=== PATIENT | female | born 1965 | race Caucasian/White ===

== ENCOUNTER 2019-07-02 20:10 | Inpatient (IN) ==
[2019-07-02] MEDS ORDERED: SODIUM CHLORIDE 0.9% 1000ML 1,000 ML IV ONE (20:58)
[2019-07-02] MEDS ORDERED: LORazepam 1 MG/2 ML VIAL IV STA (20:58)
--- NOTE | 2019-07-02 21:20 | CT Scan Report ---
CT head/brain wo con CT DOSE: 655.73 mGy.cm HISTORY: Mental status change Pt c/o hallucinations TECHNIQUE: Multiaxial CT images of the head were performed without the use of intravenous contrast. A dose lowering technique was utilized adhering to the principles of ALARA. Comparison: None. Findings: The paranasal sinuses and mastoid air cells are clear. The calvarium and skull base are int act. The ventricles and sulci are within normal limits. There is no mass, hematoma, midline shift, or acute infarct. Impression: No acute intracranial abnormality. The above report was generated using voice recognition software. It may contain grammatical, syntax or spelling errors. Electronically signed by: Willam Marin M.D. 07/02/2019 9:19 PM
[2019-07-02 21:29] LABS: Basophils # (auto) 0.05 K/uL (0-0.2); Eosinophils # (auto) 0.02 K/uL (0-0.5); Eosinophils % (auto) 0.4 %; Hemoglobin 15.2 g/dL (12.0-16.0); Immature Granulocytes # (auto) 0.01 K/uL (0.00-0.02); Immature Granulocytes % (auto) 0.2 %; Lymphocytes # (auto) 0.75 K/uL (1.2-3.4); Lymphocytes % (auto) 14.7 %; Mean Corpuscular Hemoglobin 34.6 pg (25-34); Mean Corpuscular Hgb Conc 35.3 g/dL (32-36); Mean Corpuscular Volume 97.9 fL (80-100); Mean Platelet Volume 10.9 fL (7.4-10.4); Monocytes # (auto) 0.59 K/uL (0.11-0.59); Monocytes % (auto) 11.5 %; Neutrophils # (auto) 3.69 K/uL (1.4-6.5); Neutrophils % (auto) 72.2 %; Platelet Count 153 K/uL (130-400); RDW Standard Deviation 46.1 fL (36.4-46.3); Red Blood Count 4.39 M/uL (4.2-5.4); White Blood Count 5.11 K/uL (4.8-10.8)
[2019-07-02 21:32] LABS: Appearance Urine Slightly Cloudy (Clear); Bilirubin Urine 2+ (Negative); Blood Urine 3+ (Negative); Color Urine Yellow; Glucose Urine UA Negative (Negative); Ketones Urine 2+ (Negative); Leukocyte Esterase Urine Negative (Negative); Nitrite Urine Negative (Negative); Protein Urine Trace (Negative); Specific Gravity Urine >= 1.030 (1.000-1.030); Urobilinogen Urine Negative (Negative)
[2019-07-02 21:34] LABS: Ictotest Urine Positive (Negative)
[2019-07-02 21:42] LABS: Mucus Urine Present (None Prsent)
[2019-07-02 21:43] LABS: Epithelial Cell Urine >30 /lpf (0-5)
[2019-07-02 21:45] LABS: Bacteria Urine 2+ (Negative)
[2019-07-02] MEDS ORDERED: cefTRIAXone SODIUM 2,000 MG/70 ML BAG IV STA (21:49)
[2019-07-02 21:53] LABS: Amphetamines+Metham, Urine Neg (Neg); Barbiturates, Urine Neg (Neg); Benzodiazepine, Urine Neg (Neg); Cocaine, Urine Neg (Neg); MDMA (Ecstacy), Urine Neg (Neg); Methadone, Urine Neg (Neg); Opiate, Urine Neg (Neg); Phencyclidine, Urine Neg (Neg)
[2019-07-02 21:54] LABS: Albumin Level 3.9 gm/dl (3.4-5.0); BUN Creatinine Ratio 22.5 (10-20); Calcium 8.8 mg/dl (8.5-10.1); Creatinine Clr Calc Pharmacy 81.9 ml/min; Est GFR (African American) 88.8; Est GFR (Non-African American) 76.6; Potassium 3.5 mmol/L (3.5-5.1)
[2019-07-02 22:04] LABS: Bilirubin,Total 3.9 mg/dl (0.2-1); Globulin 4.1 gm/dl (2.5-4.0); Thyroid Stimulating Hormone 1.77 uIu/ml (0.300-4.500)
[2019-07-02] MEDS ORDERED: MULTI-VITAMIN INFUSION 10 ML, THIAMINE HCL 100 MG, FOLIC ACID 1 MG in SODIUM CHLORIDE 0... IV ONE (22:09)
[2019-07-02] MEDS ORDERED: cloNIDine HCL 0.3 MG/24 HR TRANSDERM SYS TD STA (22:09)
[2019-07-02 22:12] LABS: Acetaminophen < 2 ug/ml (10-30); Salicylate < 1.7 mg/dl (2.8-20)
[2019-07-02] MEDS ORDERED: DEXTROSE 5% IV ONE (22:16)
[2019-07-02] MEDS ORDERED: ACETYLCYSTEINE IV ONE (22:16)
--- NOTE | 2019-07-02 23:00 | Ultrasound Report ---
US abdomen limited HISTORY: Pain. Nausea. Pt c/o RUQ abd pain. COMPARISON: None. FINDINGS: Pancreas: The pancreas demonstrates a normal echotexture. Liver: Unremarkable. Gallbladder: Several small gallbladder polyps. No shadowing gallstones. No pericholecystic edema CBD: 4 mm Right kidney: No hydronephrosis. IMPRESSION: 1. Several small gallbladder polyps. 2. Normal caliber bile ducts. 3. Otherwise normal study. The above report was generated using voice recognition software. It may contain grammatical, syntax or spelling errors. Electronically signed by: Willam Marin M.D. 07/02/2019 10:58 PM
[2019-07-02] MEDS ORDERED: IOVERSOL 100ml IV PRN (23:06)
[2019-07-02 23:40] LABS: INR 1.2 (0.9-1.1); Partial Thromboplastin Time 26.8 Seconds (21.0-31.0); Prothrombin Time 12.1 Seconds (9.0-12.0)
[2019-07-02] MEDS: METOPROLOL TARTRATE 1 MG/ML VIAL IV ONE (23:49)
[2019-07-03] MEDS ORDERED: CHECK CLONIDINE PATCH PLACEMENT SCH
[2019-07-03 00:10] LABS: Hepatitis B Surface Antigen Neg (Neg)
[2019-07-03] MEDS ORDERED: METOPROLOL TARTRATE 1 MG/ML VIAL IV STA (00:38)
[2019-07-03 00:39] LABS: Lipase 427 U/L (73-393); Troponin I < 0.015 ng/ml (0-0.045)
[2019-07-03 00:39] LABS: Hepatitis C IgG 13Yrs+Old_Rflx Neg (Neg)
[2019-07-03] MEDS ORDERED: SODIUM CHLORIDE 0.9% 500 ML IV SCH (00:45)
[2019-07-03] MEDS: METOPROLOL TARTRATE 1 MG/ML VIAL IV ONE (00:56)
--- NOTE | 2019-07-03 01:15 | Emergency Department Note ---
Entered by Jerman Izquierdo acting as a scribe for Jaya Espinosa MD History of Present Illness General Chief complaint: Illness Stated complaint: SICK EARLIER ON IN THE WEEK, PRESSURE IN HEAD, Time Seen by Provider: 07/02/19 20:38 Source: patient History of Present Illness Onset (ago): day(s) (few) Location: head Pain Consistency: + intermittent Maximum Pain Intensity: 3 Quality: + other (auditory and visual hallucinations) Associated symptoms: + denies other symptoms (diarrhea, abdominal pain, current nausea), + nausea/vomiting (resolved) and + other (increased stress, shaking, red eyes, pressure in head) The patient is a 54 y/o female who presents to the ED w/ CC of intermittent auditory and visual hallucinations beginning a few days ago. The patient states she was vomiting Saturday, Saturday, and Saturday. She reports her vomiting resolved and now she cannot stop shaking. The patient notes she has not been able to eat and also has not been able to sleep. She states she also has pressure in her head and tightness in her chest. The patient reports she has been through a lot of stress recently with work and the suicide of a close family member. She notes this may be caused by her anxiety but she is not sure because she has not had hallucinations before. The patient states she took a Benadryl to try to calm down, and she thinks it is finally working. She reports she also woke up the other day with severely red eyes and pressure behind them. The patient notes she does not think she is . She denies diarrhea, abdominal pain, eating a questionable food source, current nausea, and taking medication daily. Home Medications Home Medications Medication Instructions Recorded Confirmed Type folic acid 1 mg PO QAM 30 Days #30 tab 07/06/19 Rx metoprolol tartrate 12.5 mg PO BID 30 Days #30 tab 07/06/19 Rx pkbqllldfktm-[id number] acid 1 tab PO QAM 30 Days #30 tab 07/06/19 Rx [Certavite-Antioxidant] risperidone 0.5 mg PO TID PRN 3 Days #10 tab 07/06/19 Rx thiamine HCl (vitamin B1) [Vitamin 100 mg PO QAM 30 Days #30 tab 07/06/19 Rx B-1] Allergies Allergy/AdvReac Type Severity Reaction Status Date / Time Penicillins Allergy Mild Unknown Verified 07/02/19 20:51 Past Med/Surg History Medical History No pertinent past medical history Surgical History No pertinent past surgical history Family History Other No pertinent family history Social History Preferred Language: Finnish Communication Ability: Effective Sap Portal Developer Required: No Beliefs That Will Affect Care: Judaism marital status: Current Living Situation: Spouse Other Information That Helps Us Care for You: No Feels Safe at Home: Yes Safety Concerns: Feels Safe At This Time Smoking Status: Former smoker Hx Alcohol Use: Yes Alcohol type: wine Review of Systems See HPI for pertinent positives & negatives. and A total of 10 systems reviewed and were otherwise negative Physical Exam Vital Signs Vital Signs - 24 hr 07/02/19 20:19 07/02/19 23:27 07/02/19 23:30 Temperature 36.5 C Temperature Source Oral Sepsis Recent Fever Within 48 Hours No Sepsis New/Unexplained Change in Mental Status No Sepsis Action Taken by Nursing No Action Required Pulse Rate 114 H 97 H 97 H Pulse Rate from SpO2 Sensor 97 H 101 H Respiratory Rate 20 22 22 Respiratory Effort / Characteristics Non-Labored Spontaneous Respiratory Depth Normal Respiratory Pattern Regular Blood Pressure 180/100 H 145/77 H 136/77 Blood Pressure Mean 126 99 96 Blood Pressure Position Sitting Pulse Oximetry 91 93 96 Oxygen Delivery Method Room Air 07/02/19 23:45 07/02/19 23:46 Temperature Temperature Source Sepsis Recent Fever Within 48 Hours Sepsis New/Unexplained Change in Mental Status Sepsis Action Taken by Nursing Pulse Rate 189 H 188 H Pulse Rate from SpO2 Sensor 141 H 113 H Respiratory Rate 20 17 Respiratory Effort / Characteristics Respiratory Depth Respiratory Pattern Blood Pressure 158/76 H Blood Pressure Mean 103 Blood Pressure Position Pulse Oximetry 99 99 Oxygen Delivery Method GENERAL: Awake, alert, well-appearing, in no acute distress HENT: Normocephalic, atraumatic. Oropharynx unremarkable. EYES: Normal conjunctiva. Sclera non-icteric. NECK: Supple. No nuchal rigidity. FROM. No JVD. RESPIRATORY: Clear to auscultation. CARDIAC: Regular rate, normal rhythm. Extremities warm and well perfused. Pulses equal. ABDOMEN: Soft, non-distended. No tenderness to palpation. No rebound or guarding. No masses. RECTAL: Deferred. MUSCULOSKELETAL: Chest examination reveals no tenderness. The back is symmetrical on inspection without obvious abnormality. There is no CVA tenderness to palpation. No joint edema. LOWER EXTREMITIES: Calves are equal size bilaterally and non-tender. No edema. No discoloration. NEURO: Normal sensorium. No sensory or motor deficits noted. SKIN: No rash or jaundice noted. Course 2051: Past medical records reviewed. The patient was evaluated in room B10. A complete history and physical exam was performed. 2213: Upon reevaluation, the patient is resting comfortably. I discussed laboratory and radiographic results with her. She verbalized agreement of the treatment plan. The patient will be evaluated for further management and care. 2218: [facility] the [facility] will [facility] the patient for further management and care. Administered Medications Discontinued Medications Clonidine HCl ([id number]-Yzf-7 0.3mg/24hr) 1 patch TD NOW STA Stop: 07/02/19 22:10 Last Admin: 07/02/19 22:12 Dose: Not Given Documented by: [id number] Diltiazem HCl (Cardizem) 10 mg IV NOW STA Stop: 07/03/19 01:48 Last Admin: 07/03/19 02:30 Dose: 10 mg Documented by: [id number] Cosigned by: [id number] Folic Acid (Folvite) 1 mg PO QAM DRAKE Stop: 08/03/19 08:59 Last Admin: 07/06/19 08:16 Dose: 1 mg Documented by: [id number] Admin: 07/05/19 09:16 Dose: 1 mg Documented by: [id number] Admin: 07/04/19 10:21 Dose: 1 mg Documented by: [id number] Gabapentin (Neurontin) 100 mg PO Q6H DRAKE Stop: 07/04/19 23:01 Last Admin: 07/05/19 00:20 Dose: 100 mg Documented by: [id number] Admin: 07/04/19 16:29 Dose: 100 mg Documented by: [id number] Gabapentin (Neurontin) 400 mg PO Q24H DRAKE Stop: 07/06/19 11:01 Last Admin: 07/06/19 10:57 Dose: 400 mg Documented by: [id number] Gabapentin (Neurontin) 600 mg PO 1100 ONE Stop: 07/04/19 11:01 Last Admin: 07/04/19 11:51 Dose: 600 mg Documented by: [id number] Gabapentin (Neurontin) 600 mg PO Q24H DRAKE Stop: 07/05/19 11:01 Last Admin: 07/05/19 12:02 Dose: 600 mg Documented by: [id number] Heparin Sodium/Dextrose () 1 ea IV Q15M DRAKE; Protocol Stop: 08/02/19 02:01 Last Admin: 07/03/19 02:46 Dose: Not Given Documented by: [id number] Admin: 07/03/19 02:45 Dose: Not Given Documented by: [id number] Admin: 07/03/19 02:45 Dose: Not Given Documented by: [id number] Lorazepam (Ativan) 1 mg in 2 mls @ 2 mls/min IV NOW STA Stop: 07/02/19 20:59 Last Admin: 07/02/19 21:28 Dose: 2 mls/min Documented by: [id number] Sodium Chloride (Nss 1000ml) 1,000 mls @ 999 mls/hr IV .Q1H1M ONE Stop: 07/02/19 21:58 Last Infusion: 07/02/19 22:29 Dose: 0 mls/hr Documented by: [id number] Admin: 07/02/19 21:27 Dose: 999 mls/hr Documented by: [id number] Ceftriaxone Sodium (Rocephin) 2,000 mg in 70 mls @ 140 mls/hr IV NOW STA Stop: 07/02/19 22:18 Last Infusion: 07/02/19 23:29 Dose: 0 mls/hr Documented by: [id number] Admin: 07/02/19 22:12 Dose: 140 mls/hr Documented by: [id number] Multivitamins 10 ml/ Thiamine HCl 100 mg/ Folic Acid 1 mg/Sodium Chloride 1,011.2 mls @ 1,011.2 mls/hr IV .Q1H ONE Stop: 07/02/19 23:08 Last Infusion: 07/03/19 00:59 Dose: 0 mls/hr Documented by: [id number] Admin: 07/02/19 23:38 Dose: 1,011.2 mls/hr Documented by: [id number] Acetylcysteine 12,150 mg/ (Dextrose) 260.75 mls @ 200 mls/hr IV ONCE ONE Stop: 07/02/19 23:34 Last Infusion: 07/03/19 02:55 Dose: 0 mls/hr Documented by: [id number] Admin: 07/03/19 00:24 Dose: 200 mls/hr Documented by: [id number] Sodium Chloride (Nss) 500 mls @ 500 mls/hr IV .Q1H DRAKE Stop: 07/03/19 01:44 Last Infusion: 07/03/19 00:58 Dose: 0 mls/hr Documented by: [id number] Admin: 07/02/19 23:55 Dose: 500 mls/hr Documented by: [id number] Diltiazem HCl 125 mg/ Dextrose 125 mls @ 5 mls/hr IV .Q24H DRAKE; Protocol Stop: 08/02/19 01:46 Last Titration: 07/03/19 10:03 Dose: 0 mg/hr, 0 mls/hr Documented by: [id number] Titration: 07/03/19 07:16 Dose: 5 mg/hr, 5 mls/hr Documented by: [id number] Cosigned by: [id number] Titration: 07/03/19 04:32 Dose: 5 mg/hr, 5 mls/hr Documented by: [id number] Titration: 07/03/19 03:42 Dose: 15 mg/hr, 15 mls/hr Documented by: [id number] Titration: 07/03/19 03:12 Dose: 10 mg/hr, 10 mls/hr Documented by: [id number] Admin: 07/03/19 02:54 Dose: 5 mg/hr, 5 mls/hr Documented by: [id number] Cosigned by: [id number] Sodium Chloride (Nss 1000ml) 1,000 mls @ 125 mls/hr IV .Q8H DRAKE Stop: 08/02/19 02:01 Last Infusion: 07/04/19 12:00 Dose: 0 mls/hr Documented by: [id number] Infusion: 07/04/19 00:00 Dose: 0 mls/hr Documented by: [id number] Admin: 07/03/19 18:12 Dose: 125 mls/hr Documented by: [id number] Infusion: 07/03/19 18:07 Dose: 125 mls/hr Documented by: [id number] Admin: 07/03/19 10:07 Dose: 125 mls/hr Documented by: [id number] Infusion: 07/03/19 10:07 Dose: 125 mls/hr Documented by: [id number] Admin: 07/03/19 02:38 Dose: 125 mls/hr Documented by: [id number] Heparin Sodium/Dextrose (Heparin Sodium/Dextrose) 25,000 units in 500 mls @ 0 mls/hr IV .Q0M DRAKE; Protocol Stop: 08/02/19 02:01 Last Titration: 07/04/19 12:00 Dose: 0 units/hr, 0 mls/hr Documented by: [id number] Cosigned by: [id number] Titration: 07/04/19 00:00 Dose: 0 units/hr, 0 mls/hr Documented by: [id number] Cosigned by: [id number] Titration: 07/03/19 19:16 Dose: 900 units/hr, 18 mls/hr Documented by: [id number] Cosigned by: [id number] Titration: 07/03/19 17:49 Dose: 900 units/hr, 18 mls/hr Documented by: [id number] Cosigned by: [id number] Titration: 07/03/19 16:49 Dose: 0 units/hr, 0 mls/hr Documented by: [id number] Cosigned by: [id number] Titration: 07/03/19 10:06 Dose: 1,100 units/hr, 22 mls/hr Documented by: [id number] Cosigned by: [id number] Titration: 07/03/19 07:15 Dose: 1,250 units/hr, 25 mls/hr Documented by: [id number] Cosigned by: [id number] Admin: 07/03/19 02:41 Dose: 1,250 units/hr, 25 mls/hr Documented by: [id number] Cosigned by: [id number] Potassium Chloride (K Elian / Wtr) 10 meq in 100 mls @ 100 mls/hr IV Q1H DRAKE Stop: 07/03/19 08:59 Last Infusion: 07/03/19 12:26 Dose: 100 mls/hr Documented by: [id number] Admin: 07/03/19 10:21 Dose: 100 mls/hr Documented by: [id number] Infusion: 07/03/19 10:21 Dose: 100 mls/hr Documented by: [id number] Admin: 07/03/19 09:24 Dose: 100 mls/hr Documented by: [id number] Lorazepam (Ativan) 0.5 mg in 1 mls @ 1 mls/min IV NOW STA Stop: 07/03/19 09:22 Last Admin: 07/03/19 10:21 Dose: 1 mls/min Documented by: [id number] Ceftriaxone Sodium 2,000 mg/ (Dextrose) 70 mls @ 100 mls/hr IV Q24H DRAKE; Protocol Stop: 07/07/19 20:59 Last Infusion: 07/04/19 22:51 Dose: 0 mls/hr Documented by: [id number] Admin: 07/04/19 22:10 Dose: 100 mls/hr Documented by: [id number] Infusion: 07/03/19 21:36 Dose: 0 mls/hr Documented by: [id number] Admin: 07/03/19 20:54 Dose: 100 mls/hr Documented by: [id number] Lorazepam (Ativan) 1.5 mg in 3 mls @ 3 mls/min IV NOW STA Stop: 07/03/19 23:18 Last Admin: 07/04/19 07:28 Dose: Not Given Documented by: [id number] Lorazepam (Ativan) 2 mg in 4 mls @ 4 mls/min IV Q2H PRN PRN Reason: Anxiety/Agitation Stop: 08/03/19 00:02 Last Admin: 07/04/19 00:24 Dose: 4 mls/min Documented by: [id number] Potassium Chloride (K Elian / Wtr) 10 meq in 100 mls @ 100 mls/hr IV Q1H DRAKE Stop: 07/04/19 11:29 Last Infusion: 07/04/19 12:55 Dose: 0 mls/hr Documented by: [id number] Admin: 07/04/19 11:51 Dose: 100 mls/hr Documented by: [id number] Infusion: 07/04/19 11:22 Dose: 100 mls/hr Documented by: [id number] Infusion: 07/04/19 10:22 Dose: 100 mls/hr Documented by: [id number] Infusion: 07/04/19 10:21 Dose: 0 mls/hr Documented by: [id number] Admin: 07/04/19 10:21 Dose: 100 mls/hr Documented by: [id number] Potassium Chloride/Sodium Chloride (Normal Saline W/20 Meq Kcl) 20 meq in 1,000 mls @ 75 mls/hr IV .[id number] DRAKE Stop: 08/03/19 08:44 Last Admin: 07/05/19 14:28 Dose: Not Given Documented by: [id number] Infusion: 07/05/19 14:28 Dose: 0 mls/hr Documented by: [id number] Admin: 07/05/19 01:53 Dose: 75 mls/hr Documented by: [id number] Infusion: 07/05/19 01:53 Dose: 75 mls/hr Documented by: [id number] Infusion: 07/04/19 12:54 Dose: 75 mls/hr Documented by: [id number] Infusion: 07/04/19 10:22 Dose: 0 mls/hr Documented by: [id number] Admin: 07/04/19 10:21 Dose: 75 mls/hr Documented by: [id number] Lorazepam (Ativan) 1 mg in 2 mls @ 4 mls/min IV Q2H PRN PRN Reason: Anxiety/Agitation Stop: 08/03/19 10:51 Last Admin: 07/04/19 16:29 Dose: 4 mls/min Documented by: [id number] Admin: 07/04/19 15:00 Dose: 4 mls/min Documented by: [id number] Ioversol (Optiray 320 100ml) 93 ml IV ONCE PRN PRN Reason: Interaction Checking Stop: 07/06/19 23:05 Last Admin: 07/02/19 23:06 Dose: 93 ml Documented by: [id number] Lorazepam (Ativan) 1 mg PO ONE PRN; Protocol PRN Reason: EtoH Withdrawal AWSS 6-10 Last Admin: 07/04/19 10:19 Dose: 1 mg Documented by: [id number] Lorazepam (Ativan) Confirm Administered Dose 2 mg .ROUTE .STK-MED ONE Stop: 07/04/19 17:59 Last Admin: 07/04/19 18:14 Dose: 2 mg Documented by: [id number] Metoprolol Tartrate (Lopressor) Confirm Administered Dose 5 mg IV .STK-MED ONE Stop: 07/02/19 23:47 Last Admin: 07/03/19 00:56 Dose: Not Given Documented by: [id number] Metoprolol Tartrate (Lopressor) 5 mg IV NOW STA Stop: 07/03/19 00:39 Last Admin: 07/02/19 23:49 Dose: 5 mg Documented by: [id number] Metoprolol Tartrate (Lopressor) 12.5 mg PO BID [facility] Stop: 08/02/19 09:59 Last Admin: 07/06/19 08:16 Dose: 12.5 mg Documented by: [id number] Admin: 07/05/19 20:05 Dose: 12.5 mg Documented by: [id number] Admin: 07/05/19 09:14 Dose: 12.5 mg Documented by: [id number] Admin: 07/05/19 00:20 Dose: 12.5 mg Documented by: [id number] Admin: 07/04/19 10:20 Dose: 12.5 mg Documented by: [id number] Admin: 07/03/19 20:53 Dose: 12.5 mg Documented by: [id number] Admin: 07/03/19 10:22 Dose: 12.5 mg Documented by: [id number] Miscellaneous (Check Clonidine Patch) 1 ea N/A QS [facility] Stop: 08/02/19 00:00 Last Admin: 07/03/19 02:19 Dose: Not Given Documented by: [id number] Multivitamins/Minerals (Multivitamin W/ Minerals Tab) [facility] Stop: 08/02/19 08:59 Last Admin: 07/06/19 08:15 Dose: 1 tab Documented by: [id number] Admin: 07/05/19 09:15 Dose: 1 tab Documented by: [id number] Admin: 07/04/19 10:20 Dose: 1 tab Documented by: [id number] Admin: 07/03/19 09:30 Dose: 1 tab Documented by: [id number] Ondansetron HCl (Zofran) 4 mg IV Q6H PRN PRN Reason: Nausea Stop: 08/02/19 02:01 Last Admin: 07/03/19 02:50 Dose: 4 mg Documented by: [id number] Pantoprazole Sodium (Protonix) 40 mg PO QAM [facility] Stop: 07/06/19 09:01 Last Admin: 07/06/19 08:15 Dose: 40 mg Documented by: [id number] Admin: 07/05/19 09:07 Dose: Not Given Documented by: [id number] Admin: 07/04/19 10:21 Dose: 40 mg Documented by: [id number] Admin: 07/03/19 12:36 Dose: 40 mg Documented by: [id number] Potassium Chloride (Klor-Con M20) 60 meq PO NOW STA Stop: 07/03/19 06:49 Last Admin: 07/03/19 09:23 Dose: 60 meq Documented by: [id number] Risperidone (Risperdal M) 0.5 mg PO TID PRN PRN Reason: Agitation Stop: 08/03/19 18:11 Last Admin: 07/05/19 20:05 Dose: 0.5 mg Documented by: [id number] Admin: 07/05/19 09:14 Dose: 0.5 mg Documented by: [id number] Thiamine HCl (Vitamin B-1) 100 mg PO QAM [facility] Stop: 08/02/19 08:59 Last Admin: 07/06/19 08:16 Dose: 100 mg Documented by: [id number] Admin: 07/05/19 09:16 Dose: 100 mg Documented by: [id number] Admin: 07/04/19 10:21 Dose: 100 mg Documented by: [id number] Admin: 07/03/19 09:30 Dose: 100 mg Documented by: [id number] Medical Decision Making Differential Diagnosis Differential diagnoses includes but is not limited to gastritis, peptic ulcer disease, GERD, gallbladder disease, pancreatitis, small bowel obstruction, acute coronary syndrome, pericarditis, ischemic bowel, irritable bowel disease, irritable bowel syndrome, appendicitis, diverticulitis, malignancy, hernia, urinary tract infection, torsion, /ectopic , perforation, trauma, infectious. Medical Records Attestation: I reviewed the patient's medical records. Home Medications Current Medication List: was personally reviewed by me Laboratory Data Attestation: I reviewed the patient's lab results. Result diagrams: 07/04/19 06:56 07/06/19 06:24 Lab Results 07/02/19 07/02/19 07/02/19 Range/Units 21:08 21:08 21:08 WBC 5.11 (4.8-10.8) K/uL RBC 4.39 (4.2-5.4) M/uL Hgb 15.2 (12.0-16.0) g/dL Hct 43.0 (37-47) % MCV 97.9 (80-100) fL MCH 34.6 H (25-34) pg MCHC 35.3 (32-36) g/dL RDW Std Deviation 46.1 (36.4-46.3) fL RDW Coeff of Serg 13.0 (11.5-14.5) % Plt Count 153 (130-400) K/uL MPV 10.9 H (7.4-10.4) fL Immature Gran % (Auto) 0.2 % Neut % (Auto) 72.2 % Lymph % (Auto) 14.7 % [place] % (Auto) 11.5 % Eos % (Auto) 0.4 % Baso % (Auto) 1.0 % Immature Gran # (Auto) 0.01 (0.00-0.02) K/uL Neut # (Auto) 3.69 (1.4-6.5) K/uL Lymph # (Auto) 0.75 L (1.2-3.4) K/uL [place] # (Auto) 0.59 (0.11-0.59) K/uL Eos # (Auto) 0.02 (0-0.5) K/uL Baso # (Auto) 0.05 (0-0.2) K/uL ESR (0-21) mm/hr PT (9.0-12.0) Seconds INR (0.9-1.1) APTT (21.0-31.0) Seconds PTT Ratio Sodium 134 L (136-145) mmol/L Potassium 3.5 (3.5-5.1) mmol/L Chloride 99 (98-107) mmol/L Carbon Dioxide 26 (21-32) mmol/L Anion Gap 10.0 (3-11) BUN 19 H (7-18) mg/dl Creatinine 0.86 (0.6-1.2) mg/dl Est Cr Clr Drug Dosing 81.9 ml/min Est GFR ( Amer) 88.8 Est GFR (Non-Af Amer) 76.6 BUN/Creatinine Ratio 22.5 H (10-20) Glucose 108 H (70-99) mg/dl Calcium 8.8 (8.5-10.1) mg/dl Total Bilirubin 3.9 H (0.2-1) mg/dl AST 829 H (15-37) U/L ALT 799 H (12-78) U/L Alkaline Phosphatase 181 H (45-117) U/L Total Protein 8.0 (6.4-8.2) gm/dl Albumin 3.9 (3.4-5.0) gm/dl Globulin 4.1 H (2.5-4.0) gm/dl Albumin/Globulin Ratio 1.0 (0.9-2) Lipase Cancelled TSH 1.770 (0.300-4.500) uIu/ml Urine Color Urine Appearance (Clear) Urine pH (4.5-7.5) Ur Specific [place] (1.000-1.030) Urine Protein (Negative) Urine Glucose (UA) (Negative) Urine Ketones (Negative) Urine Blood (Negative) Urine Nitrite (Negative) Urine Bilirubin (Negative) Urine Urobilinogen (Negative) Ur Leukocyte Esterase (Negative) Urine RBC (0-4) /hpf Urine WBC (0-5) /hpf Ur Epithelial Cells (0-5) /lpf Urine Bacteria (Negative) Urine Mucus (None Prsent) Salicylates < 1.7 L (2.8-20) mg/dl Urine Opiates Screen (Neg) Ur Methadone, Qual (Neg) Acetaminophen < 2 L (10-30) ug/ml Urine Barbiturates (Neg) Ur Phencyclidine (PCP) (Neg) U Amphetamin/Meth Scrn (Neg) MDMA (Ecstasy) Screen (Neg) U Benzodiazepines Scrn (Neg) Ur Cocaine Metabolite (Neg) U Marijuana (THC) Screen (Neg) Ethyl Alcohol mg/dL (0-3) mg/dl Hep Bs Antigen (Neg) Hepatitis C Antibody (Neg) Monoscreen (Negative) 07/02/19 07/02/19 07/02/19 Range/Units 21:08 21:08 21:08 WBC (4.8-10.8) K/uL RBC (4.2-5.4) M/uL Hgb (12.0-16.0) g/dL Hct (37-47) % MCV (80-100) fL MCH (25-34) pg MCHC (32-36) g/dL RDW Std Deviation (36.4-46.3) fL RDW Coeff of Serg (11.5-14.5) % Plt Count (130-400) K/uL MPV (7.4-10.4) fL Immature Gran % (Auto) % Neut % (Auto) % Lymph % (Auto) % [place] % (Auto) % Eos % (Auto) % Baso % (Auto) % Immature Gran # (Auto) (0.00-0.02) K/uL Neut # (Auto) (1.4-6.5) K/uL Lymph # (Auto) (1.2-3.4) K/uL [place] # (Auto) (0.11-0.59) K/uL Eos # (Auto) (0-0.5) K/uL Baso # (Auto) (0-0.2) K/uL ESR (0-21) mm/hr PT (9.0-12.0) Seconds INR (0.9-1.1) APTT (21.0-31.0) Seconds PTT Ratio Sodium (136-145) mmol/L Potassium (3.5-5.1) mmol/L Chloride (98-107) mmol/L Carbon Dioxide (21-32) mmol/L Anion Gap (3-11) BUN (7-18) mg/dl Creatinine (0.6-1.2) mg/dl Est Cr Clr Drug Dosing ml/min Est GFR ( Amer) Est GFR (Non-Af Amer) BUN/Creatinine Ratio (10-20) Glucose (70-99) mg/dl Calcium (8.5-10.1) mg/dl Total Bilirubin (0.2-1) mg/dl AST (15-37) U/L ALT (12-78) U/L Alkaline Phosphatase (45-117) U/L Total Protein (6.4-8.2) gm/dl Albumin (3.4-5.0) gm/dl Globulin (2.5-4.0) gm/dl Albumin/Globulin Ratio (0.9-2) Lipase TSH (0.300-4.500) uIu/ml Urine Color Urine Appearance (Clear) Urine pH (4.5-7.5) Ur Specific [place] (1.000-1.030) Urine Protein (Negative) Urine Glucose (UA) (Negative) Urine Ketones (Negative) Urine Blood (Negative) Urine Nitrite (Negative) Urine Bilirubin (Negative) Urine Urobilinogen (Negative) Ur Leukocyte Esterase (Negative) Urine RBC (0-4) /hpf Urine WBC (0-5) /hpf Ur Epithelial Cells (0-5) /lpf Urine Bacteria (Negative) Urine Mucus (None Prsent) Salicylates (2.8-20) mg/dl Urine Opiates Screen (Neg) Ur Methadone, Qual (Neg) Acetaminophen (10-30) ug/ml Urine Barbiturates (Neg) Ur Phencyclidine (PCP) (Neg) U Amphetamin/Meth Scrn (Neg) MDMA (Ecstasy) Screen (Neg) U Benzodiazepines Scrn (Neg) Ur Cocaine Metabolite (Neg) U Marijuana (THC) Screen (Neg) Ethyl Alcohol mg/dL < 3.0 (0-3) mg/dl Hep Bs Antigen Neg (Neg) Hepatitis C Antibody Neg (Neg) Monoscreen Negative (Negative) 07/02/19 07/02/19 07/02/19 Range/Units 21:08 21:15 21:15 WBC (4.8-10.8) K/uL RBC (4.2-5.4) M/uL Hgb (12.0-16.0) g/dL Hct (37-47) % MCV (80-100) fL MCH (25-34) pg MCHC (32-36) g/dL RDW Std Deviation (36.4-46.3) fL RDW Coeff of Serg (11.5-14.5) % Plt Count (130-400) K/uL MPV (7.4-10.4) fL Immature Gran % (Auto) % Neut % (Auto) % Lymph % (Auto) % [place] % (Auto) % Eos % (Auto) % Baso % (Auto) % Immature Gran # (Auto) (0.00-0.02) K/uL Neut # (Auto) (1.4-6.5) K/uL Lymph # (Auto) (1.2-3.4) K/uL [place] # (Auto) (0.11-0.59) K/uL Eos # (Auto) (0-0.5) K/uL Baso # (Auto) (0-0.2) K/uL ESR 23 H (0-21) mm/hr PT (9.0-12.0) Seconds INR (0.9-1.1) APTT (21.0-31.0) Seconds PTT Ratio Sodium (136-145) mmol/L Potassium (3.5-5.1) mmol/L Chloride (98-107) mmol/L Carbon Dioxide (21-32) mmol/L Anion Gap (3-11) BUN (7-18) mg/dl Creatinine (0.6-1.2) mg/dl Est Cr Clr Drug Dosing ml/min Est GFR ( Amer) Est GFR (Non-Af Amer) BUN/Creatinine Ratio (10-20) Glucose (70-99) mg/dl Calcium (8.5-10.1) mg/dl Total Bilirubin (0.2-1) mg/dl AST (15-37) U/L ALT (12-78) U/L Alkaline Phosphatase (45-117) U/L Total Protein (6.4-8.2) gm/dl Albumin (3.4-5.0) gm/dl Globulin (2.5-4.0) gm/dl Albumin/Globulin Ratio (0.9-2) Lipase TSH (0.300-4.500) uIu/ml Urine Color Yellow Urine Appearance Slightly Cloudy (Clear) Urine pH 5.0 (4.5-7.5) Ur Specific [place] >= 1.030 (1.000-1.030) Urine Protein Trace H (Negative) Urine Glucose (UA) Negative (Negative) Urine Ketones 2+ H (Negative) Urine Blood 3+ H (Negative) Urine Nitrite Negative (Negative) Urine Bilirubin 2+ H (Negative) Urine Urobilinogen Negative (Negative) Ur Leukocyte Esterase Negative (Negative) Urine RBC 5-10 H (0-4) /hpf Urine WBC 10-30 H (0-5) /hpf Ur Epithelial Cells >30 H (0-5) /lpf Urine Bacteria 2+ H (Negative) Urine Mucus Present A (None Prsent) Salicylates (2.8-20) mg/dl Urine Opiates Screen Neg (Neg) Ur Methadone, Qual Neg (Neg) Acetaminophen (10-30) ug/ml Urine Barbiturates Neg (Neg) Ur Phencyclidine (PCP) Neg (Neg) U Amphetamin/Meth Scrn Neg (Neg) MDMA (Ecstasy) Screen Neg (Neg) U Benzodiazepines Scrn Neg (Neg) Ur Cocaine Metabolite Neg (Neg) U Marijuana (THC) Screen Neg (Neg) Ethyl Alcohol mg/dL (0-3) mg/dl Hep Bs Antigen (Neg) Hepatitis C Antibody (Neg) Monoscreen (Negative) 07/02/19 Range/Units 23:09 WBC (4.8-10.8) K/uL RBC (4.2-5.4) M/uL Hgb (12.0-16.0) g/dL Hct (37-47) % MCV (80-100) fL MCH (25-34) pg MCHC (32-36) g/dL RDW Std Deviation (36.4-46.3) fL RDW Coeff of Serg (11.5-14.5) % Plt Count (130-400) K/uL MPV (7.4-10.4) fL Immature Gran % (Auto) % Neut % (Auto) % Lymph % (Auto) % [place] % (Auto) % Eos % (Auto) % Baso % (Auto) % Immature Gran # (Auto) (0.00-0.02) K/uL Neut # (Auto) (1.4-6.5) K/uL Lymph # (Auto) (1.2-3.4) K/uL [place] # (Auto) (0.11-0.59) K/uL Eos # (Auto) (0-0.5) K/uL Baso # (Auto) (0-0.2) K/uL ESR (0-21) mm/hr PT 12.1 H (9.0-12.0) Seconds INR 1.2 H (0.9-1.1) APTT 26.8 (21.0-31.0) Seconds PTT Ratio 1.0 Sodium (136-145) mmol/L Potassium (3.5-5.1) mmol/L Chloride (98-107) mmol/L Carbon Dioxide (21-32) mmol/L Anion Gap (3-11) BUN (7-18) mg/dl Creatinine (0.6-1.2) mg/dl Est Cr Clr Drug Dosing ml/min Est GFR ( Amer) Est GFR (Non-Af Amer) BUN/Creatinine Ratio (10-20) Glucose (70-99) mg/dl Calcium (8.5-10.1) mg/dl Total Bilirubin (0.2-1) mg/dl AST (15-37) U/L ALT (12-78) U/L Alkaline Phosphatase (45-117) U/L Total Protein (6.4-8.2) gm/dl Albumin (3.4-5.0) gm/dl Globulin (2.5-4.0) gm/dl Albumin/Globulin Ratio (0.9-2) Lipase TSH (0.300-4.500) uIu/ml Urine Color Urine Appearance (Clear) Urine pH (4.5-7.5) Ur Specific [place] (1.000-1.030) Urine Protein (Negative) Urine Glucose (UA) (Negative) Urine Ketones (Negative) Urine Blood (Negative) Urine Nitrite (Negative) Urine Bilirubin (Negative) Urine Urobilinogen (Negative) Ur Leukocyte Esterase (Negative) Urine RBC (0-4) /hpf Urine WBC (0-5) /hpf Ur Epithelial Cells (0-5) /lpf Urine Bacteria (Negative) Urine Mucus (None Prsent) Salicylates (2.8-20) mg/dl Urine Opiates Screen (Neg) Ur Methadone, Qual (Neg) Acetaminophen (10-30) ug/ml Urine Barbiturates (Neg) Ur Phencyclidine (PCP) (Neg) U Amphetamin/Meth Scrn (Neg) MDMA (Ecstasy) Screen (Neg) U Benzodiazepines Scrn (Neg) Ur Cocaine Metabolite (Neg) U Marijuana (THC) Screen (Neg) Ethyl Alcohol mg/dL (0-3) mg/dl Hep Bs Antigen (Neg) Hepatitis C Antibody (Neg) Monoscreen (Negative) Imaging Data Radiologist's Impression: Radiology results as stated below per my review and the radiologist's interpretation: CT head/brain wo con CT DOSE: 655.73 mGy.cm HISTORY: Mental status change Pt c/o hallucinations TECHNIQUE: Multiaxial CT images of the head were performed without the use of intravenous contrast. A dose lowering technique was utilized adhering to the principles of ALARA. Comparison: None. Findings: The paranasal sinuses and mastoid air cells are clear. The calvarium and skull base are intact. The ventricles and sulci are within normal limits. There is no mass, hematoma, midline shift, or acute infarct. Impression: No acute intracranial abnormality. The above report was generated using voice recognition software. It may contain grammatical, syntax or spelling errors. Electronically signed by: Willam Marin M.D. 07/02/2019 9:19 PM Blood Pressure Blood Pressure Findings: Elevated blood pressure Blood Pressure Disposition: further management by hospitalist MDM Narrative This is a 54-year-old female who presents emergency department with vague symptoms. The patient is hallucinating and admits to being upset over the recent suicide of a friend. She also reports alcohol use though denies being a heavy drinker. Her LFTs were found to be elevated therefore the patient was sent for CAT scan and pelvis as well as ultrasound. Due to the elevation of the patient's liver enzymes she was started on N-acetylcysteine. I did discuss the case with the hospitalist service who agreed to admit the patient. Patient was in agreement with the treatment plan. Impression & Plan Elevated LFTs, Auditory hallucination, Atrial fibrillation with RVR, Anxiety Critical Care Time I have personally spent greater than 30 minutes of critical care time in the direct management of this patient. This includes bedside care, interpretation of diagnostic studies, and testing, discussion with consultants, patient, and family members, and other required patient management activities. This 30 minutes is in excess of all separately billable procedures. Discharge Plan Visit Data *Final* Discharge Date/Time: 07/03/19 02:10 Chief Complaint: Illness Stated Complaint: SICK EARLIER ON IN THE WEEK, PRESSURE IN HEAD, ED Provider: Jaya Espinosa Discharge Problem: Elevated LFTs, Auditory hallucination, Atrial fibrillation with RVR, Anxiety Patient Disposition: Admitted As Inpatient Condition: Good Discharge Instructions Interventions: ED Discharge Assessment Last Done: 07/03/19 02:10 The scribe's documentation has been prepared under my direction and personally reviewed by me in its entirety. I confirm that the note above accurately reflects all work, treatment, procedures, and medical decision making performed by me.
--- NOTE | 2019-07-03 01:20 | History and Physical Report ---
DATE OF ADMISSION: 07/02/2019 CHIEF COMPLAINT: Nausea, vomiting, auditory hallucinations. HISTORY OF PRESENT ILLNESS: This 54-year-old female with no significant past medical history, drinks 1 or 2 glasses of wine every day, most of the days, not on any medications who came here because since last Saturday, she is having nausea and vomiting, it lasted until Saturday, several episodes of nausea and vomiting and she had episode of fever for 1 day and she also had episode of auditory hallucinations . Saturday was okay and today again she woke up with pain behind her eyes and has been having nausea, vomiting and this was not subsiding so she came to the Emergency Room. She states her son's friend last week and she is stressful from it and also she is stressed at work. She denies any alcohol withdrawal symptoms. When she came to the Emergency Room, she was very anxious and her blood pressure was high and also her liver function tests were elevated. The patient denies any Tylenol use. She just took 1 dose of Benadryl before coming here'. but denies any excessive alcohol use. Denies any drug use. Denies any sickness in the family. Currently resting comfortably and hemodynamically stable. Denies any headaches. She was lightheaded earlier. She has some blurred visions. No earache. No runny nose. No sore throat. Appetite is not that great. Denies any chest pain. No shortness of breath. No abdominal pain. Normal bowel and bladder movements. No hematuria. No burning micturition. No black stools or blood in the stools. No rash. No swelling in the legs. ALLERGIES: PENICILLINS. PAST MEDICAL HISTORY: As mentioned above. PAST SURGICAL HISTORY: She has had leg surgery. MEDICATIONS: None. FAMILY HISTORY: Mother had diabetes. SOCIAL HISTORY: Smoked for 3 years when she was a teenager. Alcohol, 1 or 2 glasses of wine most of the days. Denies any drug use. Lives with her and son. REVIEW OF SYMPTOMS: As per HPI. Rest of review of symptoms negative. PHYSICAL EXAMINATION: GENERAL: The patient is of moderate build, not in acute distress. VITAL SIGNS: Temperature 36.5, pulse 114, blood pressure 180/100 and oxygen 95% on room air. HEENT: No pallor. No icterus. Pupils are equal, round and reactive to light. NECK: No JVD. No neck masses. No carotid bruits. CARDIOVASCULAR: S1, S2 heard. Regular rate and rhythm. No murmur. No gallop. RESPIRATORY SYSTEM: Normal AP diameter. No accessory muscle use. No wheezing. No crackles. ABDOMEN: Soft. Bowel sounds present. Nontender. No distention. CENTRAL NERVOUS SYSTEM: Cranial nerves II through XII are grossly intact. Nonfocal. EXTREMITIES: No edema. No erythema. LABORATORY DATA: WBC 5.1, hemoglobin 15.2, hematocrit 43 and platelets 153. PT/INR pending. Sodium 134, potassium 3.5, chloride 99, bicarbonate 26, BUN 19, creatinine 0.8, serum glucose 108, calcium 8.8, total bilirubin 3.9, AST 829, ALT 799, alkaline phosphatase 181 and total protein 8. Thyroid stimulating hormone 1.7. Urinalysis, ketones present. Bilirubin present. Urine toxicology negative, ethyl alcohol level less than 3. EBV and hepatitis panel pending. IMAGING: CT of the head, no acute intracranial abnormalities seen. Abdominal ultrasound, several small gallbladder polyps, small caliber bile ducts, otherwise normal study. ASSESSMENT AND PLAN: This is a 54-year-old female who presents with nausea, vomiting, fever and auditory hallucinations and found to have elevated liver function tests. 1. Nausea, vomiting and episode of fever, nausea and vomiting started last Saturday and it is persistent, etiology unclear. We will check the lipase levels. I.V. Zofran p.r.n. I.V. fluids. We will keep on clear liquid diet for now. 2. Elevated liver function tests. Total bilirubin, AST, ALT and alkaline phosphatase are elevated, . Denies taking any [id number] Tylenol. Tylenol level is low. N acetyl cysteine started by the Emergency Room, which we will continue. We will follow liver function tests and repeat laboratories in a.m. We will follow the viral studies, EBV and hepatitis panel studies. Gallbladder ultrasound except for gallbladder polyps was unremarkable. We will follow the CAT scan of the abdomen and pelvis report. We will consult Gastroenterology for further recommendations in a.m. 3. Auditory hallucinations, currently none. We will monitor. 4. Alcoholism. The patient drinks 1-2 alanna per day. She refuses excessive alcohol intake. Denies any withdrawal symptoms from it. She states she took only one or two glasses this week. I.V. banana bag started in the Emergency Room which we will continue. Start on p.o. thiamine, multivitamins with mineral tablets, place on I.V. Ativan p.r.n. for anxiety or agitation. Monitor for any withdrawal symptoms. 5. Anxiety. The patient states she has stress at work and last week, her son's friend and she is somewhat anxious when she came in. We will continue I.V. Ativan as above. We will consult psychiatry if any concerns. 6. High blood pressure. She states she has never went to a doctor for last 12 years. The blood pressure is high which could be from situational. We will place on clonidine p.r.n. and monitor the blood pressure. If consistently high, may need to start on some antihypertensives. We will consider doing an echocardiogram. 7. Deep venous thrombosis prophylaxis, sequential compression devices for now. 8. Disposition: Admit to Med/Surg tele. Level 1 full code. Addendum: Later patient went into rapid afib. A dose of iv Lopressor 5mg given. Ekg showed rapid afib. Asymptomatic. Started on Cardizem drip, iv heparin, ordered echo and cardiology consult. Alcohol withdrawal should be considered.Rule out PE. But already had contrast for ct abd/pelvis and started on iv heparin for a fib. MTDD
[2019-07-03] MEDS ORDERED: dilTIAZem HCL 125 MG in DEXTROSE 5% 100 ML IV SCH (01:47)
[2019-07-03] MEDS ORDERED: dilTIAZem HCl 5 MG/ML 5 ML VIAL IV STA (01:47)
[2019-07-03] MEDS ORDERED: HEPARIN SODIUM/DEXTROSE 25,000 UNITS/500 ML BAG IV SCH (02:02)
[2019-07-03] MEDS ORDERED: cloNIDine HCL 0.1 MG TAB PO PRN (02:02)
[2019-07-03] MEDS ORDERED: ONDANSETRON INJ 2 MG/ML 2 ML VIAL IV PRN (02:02)
[2019-07-03] MEDS ORDERED: NITROGLYCERIN SL 0.4 MG/TAB TAB SL PRN (02:02)
[2019-07-03] MEDS ORDERED: LORazepam 1 MG/2 ML VIAL IV PRN (02:02)
[2019-07-03] MEDS: SODIUM CHLORIDE 0.9% 1000ML 1,000 ML IV SCH ×3 (02:38→18:12)
[2019-07-03] MEDS: Heparin IV Standard *NO* Bolus IV SCH ×2 (02:45→02:46)
[2019-07-03 06:00] LABS: Basophils # (auto) 0.03 K/uL (0-0.2); Basophils % (auto) 0.4 %; Eosinophils # (auto) 0.02 K/uL (0-0.5); Eosinophils % (auto) 0.2 %; Hematocrit (blood only) 38.9 % (37-47); Hemoglobin 13.9 g/dL (12.0-16.0); Immature Granulocytes # (auto) 0.02 K/uL (0.00-0.02); Immature Granulocytes % (auto) 0.2 %; Lymphocytes # (auto) 1.01 K/uL (1.2-3.4); Lymphocytes % (auto) 12.1 %; Mean Corpuscular Hemoglobin 34.5 pg (25-34); Mean Corpuscular Hgb Conc 35.7 g/dL (32-36); Mean Corpuscular Volume 96.5 fL (80-100); Mean Platelet Volume 10.9 fL (7.4-10.4); Monocytes # (auto) 0.95 K/uL (0.11-0.59); Monocytes % (auto) 11.4 %; Neutrophils # (auto) 6.31 K/uL (1.4-6.5); Neutrophils % (auto) 75.7 %; Platelet Count 153 K/uL (130-400); RDW Coefficient of Variation 12.9 % (11.5-14.5); RDW Standard Deviation 45.3 fL (36.4-46.3); Red Blood Count 4.03 M/uL (4.2-5.4); White Blood Count 8.34 K/uL (4.8-10.8)
[2019-07-03 06:01] LABS: INR 1.3 (0.9-1.1); Prothrombin Time 13.3 Seconds (9.0-12.0)
[2019-07-03 06:28] LABS: RBC Morphology Unremarkable
[2019-07-03 06:34] LABS: Alanine Aminotransferase 596 U/L (12-78); Albumin Level 2.9 gm/dl (3.4-5.0); Alkaline Phosphatase 129 U/L (45-117); Aspartate Aminotransferase 519 U/L (15-37); Bilirubin Direct 1.7 mg/dl (0-0.2); Bilirubin,Total 3.1 mg/dl (0.2-1); Blood Urea Nitrogen 13 mg/dl (7-18); Calcium 7.5 mg/dl (8.5-10.1); Carbon Dioxide 22 mmol/L (21-32); Chloride 105 mmol/L (98-107); Creatinine Clr Calc Pharmacy 103.9 ml/min; Est GFR (African American) 114.9; Est GFR (Non-African American) 99.2; Glucose 176 mg/dl (70-99); Lipase 354 U/L (73-393); Magnesium 1.8 mg/dl (1.8-2.4); Potassium 2.7 mmol/L (3.5-5.1); Sodium 138 mmol/L (136-145); Total Protein 6.7 gm/dl (6.4-8.2); Troponin I < 0.015 ng/ml (0-0.045)
[2019-07-03] MEDS ORDERED: POTASSIUM CHLORIDE 20 MEQ TABCR PO STA (06:48)
--- NOTE | 2019-07-03 07:03 | CT Scan Report ---
ABDOMEN AND PELVIS CT WITH IV CONTRAST CT DOSE: 615.03 mGy.cm HISTORY: Acute right upper quadrant abdominal pain with hepatitis acute hepatitis TECHNIQUE: Multiaxial CT images of the abdomen and pelvis were performed following the IV administrat ion of 93 cc of Optiray 320, A dose lowering technique was utilized adhering to the principles of AL PATT. COMPARISON STUDY: Right upper quadrant abdominal ultrasound of same day. FINDINGS: Pectus excavatum deformity of the chest. The imaged lung bases are generally clear. There is no pneum atosis or pneumoperitoneum. The imaged inferior cardiac chambers appear unremarkable. There is minimal marginal nodularity of the liver which appears diffusely heterogeneous. Ill-defined areas of decreased attenuation noted within the liver adjacent to the mariola hepatis. No definite foca l hepatic mass lesion or intrahepatic biliary ductal dilation. Portal vein appears patent. Unremarkab le gallbladder. The spleen, pancreas and adrenal glands are unremarkable. Kidneys, ureters and urinar y bladder are within normal limits. Uterus and adnexa are within normal limits. Multiple phleboliths of the pelvis. Aorta and IVC are within normal limits. No adenopathy. And breast parenchyma and soft tissues appear unremarkable. The bones appear to be intact. Degenerati ve changes of the pelvis, hips and spine. The breast tissue IMPRESSION: 1. No bowel obstruction or bowel wall thickening. Normal appendix. 2. Diffusely heterogeneous appearance of the liver with minimal marginal nodularity. Correlate clinic ally to exclude early cirrhotic liver disease. 3. No ascites. Electronically signed by: Alfa Schmitz M.D. 07/03/2019 7:02 AM
[2019-07-03 07:08] LABS: Lyme Ab IgG w/WB Rflx Negative (Negative); Lyme Ab IgM w/WB Rflx Negative (Negative)
[2019-07-03] MEDS ORDERED: LORazepam 0.5 MG/1 ML VIAL IV STA (09:21)
[2019-07-03] MEDS ORDERED: LORazepam 1 MG TAB PO PRN (09:22)
[2019-07-03] MEDS: POTASSIUM CHLORIDE / WTR 10 MEQ/100 ML PLCT IV SCH ×2 (09:24→10:21)
[2019-07-03 09:28] LABS: Partial Thromboplastin Ratio 2.9
[2019-07-03] MEDS: THIAMINE HCL 100 MG TAB PO SCH (09:30)
[2019-07-03] MEDS: CEROVITE ADV FORMULA TAB PO SCH (09:30)
--- NOTE | 2019-07-03 09:43 | Gastrointestinal Consultation ---
Date of Consultation July 03, 2019 Assessment & Plan (1) Elevated LFTs: 54 year old female with upper abdominal pain, nausea/vomiting, decreased appetite intermittently x 1 month admitted through the ED w/ auditory/visual hallucinations noted to have elevated LFTs. CT and ABD US without evidence of gallstones, bile duct changes, pancreatitis but marginal nodularity noted of the liver. She does have history of heavy ETOH use in [employer] and college and now consumes 3/4 ETOH drinks 4/5 times a week. She is awake, alert and oriented to person, place time, without asterixis tolerating a clear liquid diet ABD PAIN, NAUSEA, VOMITING - anti emetics PRN - analgesia PRN - CT ABD and ABD US negative for acute biliary changes - LR hydration - Antiemetics PRN - Analgesia PRN - Start Omeprazole 20 mg daily - Start Bentyl 10 mg three times daily - Can continue clear liquid diet - OP EGD Elevated LFTs, INR, marginal nodularity on imaging - Concern for cirrhosis - MELD 14 - DF: 7.7 - Can continue NAC per protocol - Would hold on steroid therapy given low discriminant function - Follow acute hep, EBV, CMV panel - OP follow up with full serology - I did recommend strict ETOH cessation - ETOH withdrawal protocol Thank you for allowing us to participate in the care of this patient. Please call with any acute changes, questions or concerns. Please see addendum below with additional recommendation from my supervising physician. Present on Admission?: Yes Supervising Physician Co-Signing Physician Notes I have seen and examined the patient and discussed the management with RAMSEY Webb. 54 yo fm with a history of etoh use, gi consulted for elevated lft's. 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 NAC while in house. OK to dc home from a GI perspective when ready- outpt lft's in one week. Strict alcohol cessation. Offered hepatology fup in 2-4 weeks - she did not seem interested at this time. Agree with PPI and Bentyl as above. GI will sign off. History of Present Illness Reason for Consultation: abd pain, elevated LFTs Requesting Physician: Thomas Attending Physician: Adán Guzman MD History of Present Illness 54 year old female with no significant past medical history, PCP through [facility] in [place] who presented through the ED for persistent abd pain, nausea/vomiting and new auditory and visual hallucinations - GI asked to evaluate for elevated LFTs and abnormal imaging. Pt was seen and evalauted, chart reviewed. No family at bedside. Pt is a poor historian. She notes overall has been very healthy. Has been under a lot of stress of recent at work and in personal life (close family friend had passed). Suggests about 2/3 weeks ago she started having upper abdominal pain/pressure. She has difficultly explaining these symptoms but notes they were intermittent. Associated w/ decreased appetite, nausea/vomiting. She denies any GERD, reflux, regurgitations. Symptoms are unchanged post-prandially. Over the past 4/5 days she notes her symptoms worsened. She thought this was a viral illness as a coworker was out with N/V/D. Explains generalized abd pain. Sharp, stabbing. Intermittent. Associated w/ nausea/vomiting. Emesis is bilious, clear. No black/bloody emesis. No change in bowel habits. Semi-formed stool 1-2 times daily. No black or bloody stools. ETOH: heavy drinker in [employer] and [employer], now uses ETOH 4/5 times a week about 3/4 drinks in a sitting Tylenol: none Street drugs: none ABD US: Several small gallbladder polyps.Normal caliber bile ducts.Otherwise normal study. CT ABD: No bowel obstruction or bowel wall thickening. Normal appendix.Diffusely heterogeneous appearance of the liver with minimal marginal nodularity. Correlate clinically to exclude early cirrhotic liver disease. No ascites. Head CT: No acute intracranial abnormality. Allergies Allergy/AdvReac Type Severity Reaction Status Date / Time Penicillins Allergy Mild Unknown Verified 07/02/19 20:51 Patient History Medical History No pertinent past medical history Surgical History No pertinent past surgical history Family History Other No pertinent family history Social History Preferred Language: Ivorian Communication Ability: Effective Deposit Refund Clerk Required: No Beliefs That Will Affect Care: None Current Living Situation: Spouse Other Information That Helps Us Care for You: No Feels Safe at Home: Yes Safety Concerns: Feels Safe At This Time Smoking Status: Former smoker Hx Alcohol Use: Yes Alcohol type: wine Review of Systems Constitutional: no fever and no chills Respiratory: no cough and no dyspnea Cardiovascular: no chest pain and no radiating jaw, neck or arm pain Gastrointestinal: + abdominal pain and + nausea; no vomiting, no coffee ground emesis, no hematemesis, no blood in stools and no melena Physical Exam Constitutional: well developed and well nourished; no acute distress Neck: trachea midline Respiratory: normal respiratory effort and + respiratory distress Cardiovascular: Rate/Rhythm: regular rate and regular rhythm Gastrointestinal (Abdomen): Inspection/Auscultation: normal bowel sounds Percussion/Palpation: + abdomen tender (generalized pain w/ palpation) and abdomen soft; no guarding and abdomen not rigid Skin: no rashes, warm and dry Results & Data Vital Signs (Past 12 Hours) Vital Signs Temp Pulse Pulse Pulse Resp BP BP 07/03/19 07:38 37.2 C 101 H 19 131/73 07/03/19 04:56 112 H 108/66 07/03/19 04:21 107 H 107/74 07/03/19 03:39 150 H 110/74 07/03/19 03:11 134 H 111/77 07/03/19 02:48 112 H 123/74 07/03/19 02:14 37.0 C 122 H 16 127/73 07/03/19 01:47 136 H 17 103/90 07/03/19 01:01 147 H 23 114/58 L 07/03/19 00:30 167 H 22 99/62 L 07/03/19 00:15 158 H 16 07/03/19 00:11 141 H 16 123/95 07/03/19 00:00 141 H 14 97/79 L 07/02/19 23:55 144 H 18 132/121 H 07/02/19 23:53 160 H 18 07/02/19 23:50 173 H 12 98/65 L 07/02/19 23:46 188 H 17 158/76 H 07/02/19 23:45 189 H 20 07/02/19 23:30 97 H 22 136/77 07/02/19 23:27 97 H 22 145/77 H Pulse Ox 07/03/19 07:38 94 07/03/19 04:56 07/03/19 04:21 07/03/19 03:39 07/03/19 03:11 07/03/19 02:48 07/03/19 02:14 95 07/03/19 01:47 96 07/03/19 01:01 96 07/03/19 00:30 94 07/03/19 00:15 98 07/03/19 00:11 97 07/03/19 00:00 99 07/02/19 23:55 99 07/02/19 23:53 100 07/02/19 23:50 99 07/02/19 23:46 99 07/02/19 23:45 99 07/02/19 23:30 96 07/02/19 23:27 93 Laboratory Results 07/03/19 07/03/19 07/03/19 Range/Units 08:44 05:22 05:22 WBC (4.8-10.8) K/uL RBC (4.2-5.4) M/uL Hgb (12.0-16.0) g/dL Hct (37-47) % MCV (80-100) fL MCH (25-34) pg MCHC (32-36) g/dL RDW Std Deviation (36.4-46.3) fL RDW Coeff of Serg (11.5-14.5) % Plt Count (130-400) K/uL MPV (7.4-10.4) fL Immature Gran % (Auto) % Neut % (Auto) % Lymph % (Auto) % Treasure % (Auto) % Eos % (Auto) % Baso % (Auto) % Immature Gran # (Auto) (0.00-0.02) K/uL Neut # (Auto) (1.4-6.5) K/uL Lymph # (Auto) (1.2-3.4) K/uL Treasure # (Auto) (0.11-0.59) K/uL Eos # (Auto) (0-0.5) K/uL Baso # (Auto) (0-0.2) K/uL RBC Morphology Peripher Smr Path Cons ESR (0-21) mm/hr PT (9.0-12.0) Seconds INR (0.9-1.1) APTT Pending (21.0-31.0) Seconds PTT Ratio Pending Sodium (136-145) mmol/L Potassium (3.5-5.1) mmol/L Chloride (98-107) mmol/L Carbon Dioxide (21-32) mmol/L Anion Gap (3-11) BUN (7-18) mg/dl Creatinine (0.6-1.2) mg/dl Est Cr Clr Drug Dosing ml/min Est GFR ( Amer) Est GFR (Non-Af Amer) BUN/Creatinine Ratio (10-20) Glucose (70-99) mg/dl Calcium (8.5-10.1) mg/dl Magnesium (1.8-2.4) mg/dl Total Bilirubin (0.2-1) mg/dl Direct Bilirubin (0-0.2) mg/dl AST (15-37) U/L ALT (12-78) U/L Alkaline Phosphatase (45-117) U/L Troponin I (0-0.045) ng/ml Total Protein (6.4-8.2) gm/dl Albumin (3.4-5.0) gm/dl Globulin (2.5-4.0) gm/dl Albumin/Globulin Ratio (0.9-2) Lipase TSH (0.300-4.500) uIu/ml Urine Color Urine Appearance (Clear) Urine pH (4.5-7.5) Ur Specific Menan (1.000-1.030) Urine Protein (Negative) Urine Glucose (UA) (Negative) Urine Ketones (Negative) Urine Blood (Negative) Urine Nitrite (Negative) Urine Bilirubin (Negative) Urine Urobilinogen (Negative) Ur Leukocyte Esterase (Negative) Urine RBC (0-4) /hpf Urine WBC (0-5) /hpf Ur Epithelial Cells (0-5) /lpf Urine Bacteria (Negative) Urine Mucus (None Prsent) Salicylates (2.8-20) mg/dl Urine Opiates Screen (Neg) Ur Methadone, Qual (Neg) Acetaminophen (10-30) ug/ml Urine Barbiturates (Neg) Ur Phencyclidine (PCP) (Neg) U Amphetamin/Meth Scrn (Neg) MDMA (Ecstasy) Screen (Neg) U Benzodiazepines Scrn (Neg) Ur Cocaine Metabolite (Neg) U Marijuana (THC) Screen (Neg) Ethyl Alcohol mg/dL (0-3) mg/dl DAMON Screen Anaplasma Smear A. phagocytophilum DNA Pending Lyme Disease IgG Ab (Negative) Lyme Disease IgM Ab (Negative) EBV Capsid Ag IgG Ab EBV Capsid Ag IgM Ab EBV EA Restrict+Diffuse EBV Nuclear Antigen Ab Hepatitis A IgM Ab Hep Bs Antigen (Neg) Hep B Core IgM Ab Hepatitis C Antibody (Neg) Monoscreen (Negative) Miscellaneous Test Pending 07/03/19 07/03/19 07/03/19 Range/Units 05:22 05:22 05:22 WBC 8.34 (4.8-10.8) K/uL RBC 4.03 L (4.2-5.4) M/uL Hgb 13.9 (12.0-16.0) g/dL Hct 38.9 (37-47) % MCV 96.5 (80-100) fL MCH 34.5 H (25-34) pg MCHC 35.7 (32-36) g/dL RDW Std Deviation 45.3 (36.4-46.3) fL RDW Coeff of Serg 12.9 (11.5-14.5) % Plt Count 153 (130-400) K/uL MPV 10.9 H (7.4-10.4) fL Immature Gran % (Auto) 0.2 % Neut % (Auto) 75.7 % Lymph % (Auto) 12.1 % Treasure % (Auto) 11.4 % Eos % (Auto) 0.2 % Baso % (Auto) 0.4 % Immature Gran # (Auto) 0.02 (0.00-0.02) K/uL Neut # (Auto) 6.31 (1.4-6.5) K/uL Lymph # (Auto) 1.01 L (1.2-3.4) K/uL Treasure # (Auto) 0.95 H (0.11-0.59) K/uL Eos # (Auto) 0.02 (0-0.5) K/uL Baso # (Auto) 0.03 (0-0.2) K/uL RBC Morphology Unremarkable Peripher Smr Path Cons Cancelled ESR (0-21) mm/hr PT (9.0-12.0) Seconds INR (0.9-1.1) APTT (21.0-31.0) Seconds PTT Ratio Sodium 138 (136-145) mmol/L Potassium 2.7 L D (3.5-5.1) mmol/L Chloride 105 (98-107) mmol/L Carbon Dioxide 22 (21-32) mmol/L Anion Gap 11.0 (3-11) BUN 13 (7-18) mg/dl Creatinine 0.68 (0.6-1.2) mg/dl Est Cr Clr Drug Dosing 103.9 ml/min Est GFR ( Amer) 114.9 Est GFR (Non-Af Amer) 99.2 BUN/Creatinine Ratio 19.0 (10-20) Glucose 176 H (70-99) mg/dl Calcium 7.5 L (8.5-10.1) mg/dl Magnesium 1.8 (1.8-2.4) mg/dl Total Bilirubin 3.1 H (0.2-1) mg/dl Direct Bilirubin 1.7 H (0-0.2) mg/dl AST 519 H (15-37) U/L ALT 596 H (12-78) U/L Alkaline Phosphatase 129 H (45-117) U/L Troponin I < 0.015 (0-0.045) ng/ml Total Protein 6.7 (6.4-8.2) gm/dl Albumin 2.9 L (3.4-5.0) gm/dl Globulin (2.5-4.0) gm/dl Albumin/Globulin Ratio (0.9-2) Lipase 354 TSH (0.300-4.500) uIu/ml Urine Color Urine Appearance (Clear) Urine pH (4.5-7.5) Ur Specific Menan (1.000-1.030) Urine Protein (Negative) Urine Glucose (UA) (Negative) Urine Ketones (Negative) Urine Blood (Negative) Urine Nitrite (Negative) Urine Bilirubin (Negative) Urine Urobilinogen (Negative) Ur Leukocyte Esterase (Negative) Urine RBC (0-4) /hpf Urine WBC (0-5) /hpf Ur Epithelial Cells (0-5) /lpf Urine Bacteria (Negative) Urine Mucus (None Prsent) Salicylates (2.8-20) mg/dl Urine Opiates Screen (Neg) Ur Methadone, Qual (Neg) Acetaminophen (10-30) ug/ml Urine Barbiturates (Neg) Ur Phencyclidine (PCP) (Neg) U Amphetamin/Meth Scrn (Neg) MDMA (Ecstasy) Screen (Neg) U Benzodiazepines Scrn (Neg) Ur Cocaine Metabolite (Neg) U Marijuana (THC) Screen (Neg) Ethyl Alcohol mg/dL (0-3) mg/dl DAMON Screen Anaplasma Smear See Comment A. phagocytophilum DNA Lyme Disease IgG Ab Negative (Negative) Lyme Disease IgM Ab Negative (Negative) EBV Capsid Ag IgG Ab EBV Capsid Ag IgM Ab EBV EA Restrict+Diffuse EBV Nuclear Antigen Ab Hepatitis A IgM Ab Hep Bs Antigen (Neg) Hep B Core IgM Ab Hepatitis C Antibody (Neg) Monoscreen (Negative) Miscellaneous Test 07/03/19 07/03/19 07/03/19 Range/Units 05:22 05:21 00:10 WBC (4.8-10.8) K/uL RBC (4.2-5.4) M/uL Hgb (12.0-16.0) g/dL Hct (37-47) % MCV (80-100) fL MCH (25-34) pg MCHC (32-36) g/dL RDW Std Deviation (36.4-46.3) fL RDW Coeff of Serg (11.5-14.5) % Plt Count (130-400) K/uL MPV (7.4-10.4) fL Immature Gran % (Auto) % Neut % (Auto) % Lymph % (Auto) % Treasure % (Auto) % Eos % (Auto) % Baso % (Auto) % Immature Gran # (Auto) (0.00-0.02) K/uL Neut # (Auto) (1.4-6.5) K/uL Lymph # (Auto) (1.2-3.4) K/uL Treasure # (Auto) (0.11-0.59) K/uL Eos # (Auto) (0-0.5) K/uL Baso # (Auto) (0-0.2) K/uL RBC Morphology Peripher Smr Path Cons ESR (0-21) mm/hr PT 13.3 H (9.0-12.0) Seconds INR 1.3 H (0.9-1.1) APTT (21.0-31.0) Seconds PTT Ratio Sodium (136-145) mmol/L Potassium (3.5-5.1) mmol/L Chloride (98-107) mmol/L Carbon Dioxide (21-32) mmol/L Anion Gap (3-11) BUN (7-18) mg/dl Creatinine (0.6-1.2) mg/dl Est Cr Clr Drug Dosing ml/min Est GFR ( Amer) Est GFR (Non-Af Amer) BUN/Creatinine Ratio (10-20) Glucose (70-99) mg/dl Calcium (8.5-10.1) mg/dl Magnesium (1.8-2.4) mg/dl Total Bilirubin (0.2-1) mg/dl Direct Bilirubin (0-0.2) mg/dl AST (15-37) U/L ALT (12-78) U/L Alkaline Phosphatase (45-117) U/L Troponin I < 0.015 (0-0.045) ng/ml Total Protein (6.4-8.2) gm/dl Albumin (3.4-5.0) gm/dl Globulin (2.5-4.0) gm/dl Albumin/Globulin Ratio (0.9-2) Lipase 427 H TSH (0.300-4.500) uIu/ml Urine Color Urine Appearance (Clear) Urine pH (4.5-7.5) Ur Specific Menan (1.000-1.030) Urine Protein (Negative) Urine Glucose (UA) (Negative) Urine Ketones (Negative) Urine Blood (Negative) Urine Nitrite (Negative) Urine Bilirubin (Negative) Urine Urobilinogen (Negative) Ur Leukocyte Esterase (Negative) Urine RBC (0-4) /hpf Urine WBC (0-5) /hpf Ur Epithelial Cells (0-5) /lpf Urine Bacteria (Negative) Urine Mucus (None Prsent) Salicylates (2.8-20) mg/dl Urine Opiates Screen (Neg) Ur Methadone, Qual (Neg) Acetaminophen Cancelled (10-30) ug/ml Urine Barbiturates (Neg) Ur Phencyclidine (PCP) (Neg) U Amphetamin/Meth Scrn (Neg) MDMA (Ecstasy) Screen (Neg) U Benzodiazepines Scrn (Neg) Ur Cocaine Metabolite (Neg) U Marijuana (THC) Screen (Neg) Ethyl Alcohol mg/dL (0-3) mg/dl DAMON Screen Anaplasma Smear A. phagocytophilum DNA Lyme Disease IgG Ab (Negative) Lyme Disease IgM Ab (Negative) EBV Capsid Ag IgG Ab EBV Capsid Ag IgM Ab EBV EA Restrict+Diffuse EBV Nuclear Antigen Ab Hepatitis A IgM Ab Hep Bs Antigen (Neg) Hep B Core IgM Ab Hepatitis C Antibody (Neg) Monoscreen (Negative) Miscellaneous Test 07/02/19 07/02/19 07/02/19 Range/Units 23:09 23:09 21:15 WBC (4.8-10.8) K/uL RBC (4.2-5.4) M/uL Hgb (12.0-16.0) g/dL Hct (37-47) % MCV (80-100) fL MCH (25-34) pg MCHC (32-36) g/dL RDW Std Deviation (36.4-46.3) fL RDW Coeff of Serg (11.5-14.5) % Plt Count (130-400) K/uL MPV (7.4-10.4) fL Immature Gran % (Auto) % Neut % (Auto) % Lymph % (Auto) % Treasure % (Auto) % Eos % (Auto) % Baso % (Auto) % Immature Gran # (Auto) (0.00-0.02) K/uL Neut # (Auto) (1.4-6.5) K/uL Lymph # (Auto) (1.2-3.4) K/uL Treasure # (Auto) (0.11-0.59) K/uL Eos # (Auto) (0-0.5) K/uL Baso # (Auto) (0-0.2) K/uL RBC Morphology Peripher Smr Path Cons ESR (0-21) mm/hr PT 12.1 H (9.0-12.0) Seconds INR 1.2 H (0.9-1.1) APTT 26.8 (21.0-31.0) Seconds PTT Ratio 1.0 Sodium (136-145) mmol/L Potassium (3.5-5.1) mmol/L Chloride (98-107) mmol/L Carbon Dioxide (21-32) mmol/L Anion Gap (3-11) BUN (7-18) mg/dl Creatinine (0.6-1.2) mg/dl Est Cr Clr Drug Dosing ml/min Est GFR ( Amer) Est GFR (Non-Af Amer) BUN/Creatinine Ratio (10-20) Glucose (70-99) mg/dl Calcium (8.5-10.1) mg/dl Magnesium (1.8-2.4) mg/dl Total Bilirubin (0.2-1) mg/dl Direct Bilirubin (0-0.2) mg/dl AST (15-37) U/L ALT (12-78) U/L Alkaline Phosphatase (45-117) U/L Troponin I (0-0.045) ng/ml Total Protein (6.4-8.2) gm/dl Albumin (3.4-5.0) gm/dl Globulin (2.5-4.0) gm/dl Albumin/Globulin Ratio (0.9-2) Lipase TSH (0.300-4.500) uIu/ml Urine Color Yellow Urine Appearance Slightly Cloudy (Clear) Urine pH 5.0 (4.5-7.5) Ur Specific Menan >= 1.030 (1.000-1.030) Urine Protein Trace H (Negative) Urine Glucose (UA) Negative (Negative) Urine Ketones 2+ H (Negative) Urine Blood 3+ H (Negative) Urine Nitrite Negative (Negative) Urine Bilirubin 2+ H (Negative) Urine Urobilinogen Negative (Negative) Ur Leukocyte Esterase Negative (Negative) Urine RBC 5-10 H (0-4) /hpf Urine WBC 10-30 H (0-5) /hpf Ur Epithelial Cells >30 H (0-5) /lpf Urine Bacteria 2+ H (Negative) Urine Mucus Present A (None Prsent) Salicylates (2.8-20) mg/dl Urine Opiates Screen (Neg) Ur Methadone, Qual (Neg) Acetaminophen (10-30) ug/ml Urine Barbiturates (Neg) Ur Phencyclidine (PCP) (Neg) U Amphetamin/Meth Scrn (Neg) MDMA (Ecstasy) Screen (Neg) U Benzodiazepines Scrn (Neg) Ur Cocaine Metabolite (Neg) U Marijuana (THC) Screen (Neg) Ethyl Alcohol mg/dL (0-3) mg/dl DAMON Screen Pending Anaplasma Smear A. phagocytophilum DNA Lyme Disease IgG Ab (Negative) Lyme Disease IgM Ab (Negative) EBV Capsid Ag IgG Ab Pending EBV Capsid Ag IgM Ab Pending EBV EA Restrict+Diffuse Pending EBV Nuclear Antigen Ab Pending Hepatitis A IgM Ab Pending Hep Bs Antigen (Neg) Hep B Core IgM Ab Pending Hepatitis C Antibody (Neg) Monoscreen (Negative) Miscellaneous Test 07/02/19 07/02/19 07/02/19 Range/Units 21:15 21:08 21:08 WBC (4.8-10.8) K/uL RBC (4.2-5.4) M/uL Hgb (12.0-16.0) g/dL Hct (37-47) % MCV (80-100) fL MCH (25-34) pg MCHC (32-36) g/dL RDW Std Deviation (36.4-46.3) fL RDW Coeff of Serg (11.5-14.5) % Plt Count (130-400) K/uL MPV (7.4-10.4) fL Immature Gran % (Auto) % Neut % (Auto) % Lymph % (Auto) % Treasure % (Auto) % Eos % (Auto) % Baso % (Auto) % Immature Gran # (Auto) (0.00-0.02) K/uL Neut # (Auto) (1.4-6.5) K/uL Lymph # (Auto) (1.2-3.4) K/uL Treasure # (Auto) (0.11-0.59) K/uL Eos # (Auto) (0-0.5) K/uL Baso # (Auto) (0-0.2) K/uL RBC Morphology Peripher Smr Path Cons ESR 23 H (0-21) mm/hr PT (9.0-12.0) Seconds INR (0.9-1.1) APTT (21.0-31.0) Seconds PTT Ratio Sodium (136-145) mmol/L Potassium (3.5-5.1) mmol/L Chloride (98-107) mmol/L Carbon Dioxide (21-32) mmol/L Anion Gap (3-11) BUN (7-18) mg/dl Creatinine (0.6-1.2) mg/dl Est Cr Clr Drug Dosing ml/min Est GFR ( Amer) Est GFR (Non-Af Amer) BUN/Creatinine Ratio (10-20) Glucose (70-99) mg/dl Calcium (8.5-10.1) mg/dl Magnesium (1.8-2.4) mg/dl Total Bilirubin (0.2-1) mg/dl Direct Bilirubin (0-0.2) mg/dl AST (15-37) U/L ALT (12-78) U/L Alkaline Phosphatase (45-117) U/L Troponin I (0-0.045) ng/ml Total Protein (6.4-8.2) gm/dl Albumin (3.4-5.0) gm/dl Globulin (2.5-4.0) gm/dl Albumin/Globulin Ratio (0.9-2) Lipase TSH (0.300-4.500) uIu/ml Urine Color Urine Appearance (Clear) Urine pH (4.5-7.5) Ur Specific Menan (1.000-1.030) Urine Protein (Negative) Urine Glucose (UA) (Negative) Urine Ketones (Negative) Urine Blood (Negative) Urine Nitrite (Negative) Urine Bilirubin (Negative) Urine Urobilinogen (Negative) Ur Leukocyte Esterase (Negative) Urine RBC (0-4) /hpf Urine WBC (0-5) /hpf Ur Epithelial Cells (0-5) /lpf Urine Bacteria (Negative) Urine Mucus (None Prsent) Salicylates (2.8-20) mg/dl Urine Opiates Screen Neg (Neg) Ur Methadone, Qual Neg (Neg) Acetaminophen (10-30) ug/ml Urine Barbiturates Neg (Neg) Ur Phencyclidine (PCP) Neg (Neg) U Amphetamin/Meth Scrn Neg (Neg) MDMA (Ecstasy) Screen Neg (Neg) U Benzodiazepines Scrn Neg (Neg) Ur Cocaine Metabolite Neg (Neg) U Marijuana (THC) Screen Neg (Neg) Ethyl Alcohol mg/dL (0-3) mg/dl DAMON Screen Anaplasma Smear A. phagocytophilum DNA Lyme Disease IgG Ab (Negative) Lyme Disease IgM Ab (Negative) EBV Capsid Ag IgG Ab EBV Capsid Ag IgM Ab EBV EA Restrict+Diffuse EBV Nuclear Antigen Ab Hepatitis A IgM Ab Hep Bs Antigen (Neg) Hep B Core IgM Ab Hepatitis C Antibody (Neg) Monoscreen Negative (Negative) Miscellaneous Test 07/02/19 07/02/19 07/02/19 Range/Units 21:08 21:08 21:08 WBC (4.8-10.8) K/uL RBC (4.2-5.4) M/uL Hgb (12.0-16.0) g/dL Hct (37-47) % MCV (80-100) fL MCH (25-34) pg MCHC (32-36) g/dL RDW Std Deviation (36.4-46.3) fL RDW Coeff of Serg (11.5-14.5) % Plt Count (130-400) K/uL MPV (7.4-10.4) fL Immature Gran % (Auto) % Neut % (Auto) % Lymph % (Auto) % Treasure % (Auto) % Eos % (Auto) % Baso % (Auto) % Immature Gran # (Auto) (0.00-0.02) K/uL Neut # (Auto) (1.4-6.5) K/uL Lymph # (Auto) (1.2-3.4) K/uL Treasure # (Auto) (0.11-0.59) K/uL Eos # (Auto) (0-0.5) K/uL Baso # (Auto) (0-0.2) K/uL RBC Morphology Peripher Smr Path Cons ESR (0-21) mm/hr PT (9.0-12.0) Seconds INR (0.9-1.1) APTT (21.0-31.0) Seconds PTT Ratio Sodium (136-145) mmol/L Potassium (3.5-5.1) mmol/L Chloride (98-107) mmol/L Carbon Dioxide (21-32) mmol/L Anion Gap (3-11) BUN (7-18) mg/dl Creatinine (0.6-1.2) mg/dl Est Cr Clr Drug Dosing ml/min Est GFR ( Amer) Est GFR (Non-Af Amer) BUN/Creatinine Ratio (10-20) Glucose (70-99) mg/dl Calcium (8.5-10.1) mg/dl Magnesium (1.8-2.4) mg/dl Total Bilirubin (0.2-1) mg/dl Direct Bilirubin (0-0.2) mg/dl AST (15-37) U/L ALT (12-78) U/L Alkaline Phosphatase (45-117) U/L Troponin I (0-0.045) ng/ml Total Protein (6.4-8.2) gm/dl Albumin (3.4-5.0) gm/dl Globulin (2.5-4.0) gm/dl Albumin/Globulin Ratio (0.9-2) Lipase TSH (0.300-4.500) uIu/ml Urine Color Urine Appearance (Clear) Urine pH (4.5-7.5) Ur Specific Menan (1.000-1.030) Urine Protein (Negative) Urine Glucose (UA) (Negative) Urine Ketones (Negative) Urine Blood (Negative) Urine Nitrite (Negative) Urine Bilirubin (Negative) Urine Urobilinogen (Negative) Ur Leukocyte Esterase (Negative) Urine RBC (0-4) /hpf Urine WBC (0-5) /hpf Ur Epithelial Cells (0-5) /lpf Urine Bacteria (Negative) Urine Mucus (None Prsent) Salicylates < 1.7 L (2.8-20) mg/dl Urine Opiates Screen (Neg) Ur Methadone, Qual (Neg) Acetaminophen < 2 L (10-30) ug/ml Urine Barbiturates (Neg) Ur Phencyclidine (PCP) (Neg) U Amphetamin/Meth Scrn (Neg) MDMA (Ecstasy) Screen (Neg) U Benzodiazepines Scrn (Neg) Ur Cocaine Metabolite (Neg) U Marijuana (THC) Screen (Neg) Ethyl Alcohol mg/dL < 3.0 (0-3) mg/dl DAMON Screen Anaplasma Smear A. phagocytophilum DNA Lyme Disease IgG Ab (Negative) Lyme Disease IgM Ab (Negative) EBV Capsid Ag IgG Ab EBV Capsid Ag IgM Ab EBV EA Restrict+Diffuse EBV Nuclear Antigen Ab Hepatitis A IgM Ab Hep Bs Antigen Neg (Neg) Hep B Core IgM Ab Hepatitis C Antibody Neg (Neg) Monoscreen (Negative) Miscellaneous Test 07/02/19 07/02/19 Range/Units 21:08 21:08 WBC 5.11 (4.8-10.8) K/uL RBC 4.39 (4.2-5.4) M/uL Hgb 15.2 (12.0-16.0) g/dL Hct 43.0 (37-47) % MCV 97.9 (80-100) fL MCH 34.6 H (25-34) pg MCHC 35.3 (32-36) g/dL RDW Std Deviation 46.1 (36.4-46.3) fL RDW Coeff of Serg 13.0 (11.5-14.5) % Plt Count 153 (130-400) K/uL MPV 10.9 H (7.4-10.4) fL Immature Gran % (Auto) 0.2 % Neut % (Auto) 72.2 % Lymph % (Auto) 14.7 % Treasure % (Auto) 11.5 % Eos % (Auto) 0.4 % Baso % (Auto) 1.0 % Immature Gran # (Auto) 0.01 (0.00-0.02) K/uL Neut # (Auto) 3.69 (1.4-6.5) K/uL Lymph # (Auto) 0.75 L (1.2-3.4) K/uL Treasure # (Auto) 0.59 (0.11-0.59) K/uL Eos # (Auto) 0.02 (0-0.5) K/uL Baso # (Auto) 0.05 (0-0.2) K/uL RBC Morphology Peripher Smr Path Cons ESR (0-21) mm/hr PT (9.0-12.0) Seconds INR (0.9-1.1) APTT (21.0-31.0) Seconds PTT Ratio Sodium 134 L (136-145) mmol/L Potassium 3.5 (3.5-5.1) mmol/L Chloride 99 (98-107) mmol/L Carbon Dioxide 26 (21-32) mmol/L Anion Gap 10.0 (3-11) BUN 19 H (7-18) mg/dl Creatinine 0.86 (0.6-1.2) mg/dl Est Cr Clr Drug Dosing 81.9 ml/min Est GFR ( Amer) 88.8 Est GFR (Non-Af Amer) 76.6 BUN/Creatinine Ratio 22.5 H (10-20) Glucose 108 H (70-99) mg/dl Calcium 8.8 (8.5-10.1) mg/dl Magnesium (1.8-2.4) mg/dl Total Bilirubin 3.9 H (0.2-1) mg/dl Direct Bilirubin (0-0.2) mg/dl AST 829 H (15-37) U/L ALT 799 H (12-78) U/L Alkaline Phosphatase 181 H (45-117) U/L Troponin I (0-0.045) ng/ml Total Protein 8.0 (6.4-8.2) gm/dl Albumin 3.9 (3.4-5.0) gm/dl Globulin 4.1 H (2.5-4.0) gm/dl Albumin/Globulin Ratio 1.0 (0.9-2) Lipase Cancelled TSH 1.770 (0.300-4.500) uIu/ml Urine Color Urine Appearance (Clear) Urine pH (4.5-7.5) Ur Specific Menan (1.000-1.030) Urine Protein (Negative) Urine Glucose (UA) (Negative) Urine Ketones (Negative) Urine Blood (Negative) Urine Nitrite (Negative) Urine Bilirubin (Negative) Urine Urobilinogen (Negative) Ur Leukocyte Esterase (Negative) Urine RBC (0-4) /hpf Urine WBC (0-5) /hpf Ur Epithelial Cells (0-5) /lpf Urine Bacteria (Negative) Urine Mucus (None Prsent) Salicylates (2.8-20) mg/dl Urine Opiates Screen (Neg) Ur Methadone, Qual (Neg) Acetaminophen (10-30) ug/ml Urine Barbiturates (Neg) Ur Phencyclidine (PCP) (Neg) U Amphetamin/Meth Scrn (Neg) MDMA (Ecstasy) Screen (Neg) U Benzodiazepines Scrn (Neg) Ur Cocaine Metabolite (Neg) U Marijuana (THC) Screen (Neg) Ethyl Alcohol mg/dL (0-3) mg/dl DAMON Screen Anaplasma Smear A. phagocytophilum DNA Lyme Disease IgG Ab (Negative) Lyme Disease IgM Ab (Negative) EBV Capsid Ag IgG Ab EBV Capsid Ag IgM Ab EBV EA Restrict+Diffuse EBV Nuclear Antigen Ab Hepatitis A IgM Ab Hep Bs Antigen (Neg) Hep B Core IgM Ab Hepatitis C Antibody (Neg) Monoscreen (Negative) Miscellaneous Test
[2019-07-03 09:49] LABS: Partial Thromboplastin Time 77.8 Seconds (21.0-31.0)
[2019-07-03] MEDS: METOPROLOL TARTRATE 25 MG TAB PO SCH ×2 (10:22→20:53)
--- NOTE | 2019-07-03 10:57 | Cardiology Consultation ---
Date of Consultation July 03, 2019 Assessment & Plan (1) Atrial fibrillation with RVR: Very short duration of approximately 4 hours. She denies any previous diagnosis of atrial fibrillation She was somewhat symptomatic during the event but had difficulty discerning her different physical symptoms that all appear to be happening at once. The pathophysiology and treatment options for atrial fibrillation were discussed with her at great lengths. She is counseled that I believe the most prudent course of action at this time would be to start low-dose beta-neil and complete 24 hours of a heparin drip. She will be monitored on telemetry for at least another 24 hours and will require a ZI0 patch monitor upon discharge Should she have any recurrences of atrial fibrillation while on monitor it would be reasonable to start her on DOAC therapy Current ACC/AHA guidelines show there is no role of aspirin in paroxysmal atrial fibrillation and will not be started at this time. (2) Elevated LFTs: She is to be evaluated by our GI colleagues (3) Anxiety: Patient is extremely anxious during examination It appears that she has been suffering a great deal of anxiety and stress as of late and I have offered psychiatry referral while she is admitted and she is accepting of this. I will place the order now We appreciate our psychiatric colleagues recommendations History of Present Illness Reason for Consultation: new onset atrial fibrillation with rapid ventricular response Requesting Physician: Mrs. Rhodes is a 54-year-old woman who presented to [facility] emergency department on 07/02/2019 with complaints of nausea and vomiting. She states that she has not been feeling well for several days. She is been having a great deal of stress in her life including issues at work and the recent passing of her son's best friend who she describes as a member of the family. She is been going through a great deal of angst and stress. She states it got to the point where she was feeling washed out and tired. She even started developing auditory hallucinations feeling as though someone was in the room talking but she could not make out what they are saying. When specifically asked she denies that the voices she heard were giving her directions and she specifically denies that the voices told her to harm herself or others. With this she is been having a lot of difficulty with nausea and vomiting when she is been feeling very on edge. Her symptoms came to ahead on the when she came into the emergency department. Initial work-up showed some transaminitis and hypertensive. She is being admitted to the telemetry unit when she suddenly went into atrial fibrillation with rapid ventricular response at 2336. She was started on heparin and Cardizem drips and she spontaneously converted to normal sinus rhythm at 0 354. While in atrial fibrillation she feels that she may have felt her heart racing and pounding her chest but is very difficult for her to say if she is felt this previously. Again she is notes that she is been very anxious and having a lot of difficulty discerning her physical symptoms. Of note she has not seen a physician in 12 years. Attending Physician: Adán Guzman MD Allergies Allergy/AdvReac Type Severity Reaction Status Date / Time Penicillins Allergy Mild Unknown Verified 07/02/19 20:51 Patient History Medical History No pertinent past medical history Surgical History No pertinent past surgical history Family History Other No pertinent family history Social History Preferred Language: Egyptian Communication Ability: Effective Mattress Stuffer Required: No Beliefs That Will Affect Care: None Current Living Situation: Spouse Other Information That Helps Us Care for You: No Feels Safe at Home: Yes Safety Concerns: Feels Safe At This Time Smoking Status: Former smoker Hx Alcohol Use: Yes Alcohol type: wine Review of Systems Review of Systems: All systems reviewed & are unremarkable except as noted in HPI & below Physical Exam Physical Exam: Physical Exam: General: Awake, alert and oriented x 3. Moderately anxious. HEENT: Normocephalic, atraumatic. Pupils equal, round and reactive to light and accommodation. Extraocular muscles are intact. Anicteric sclera. Moist mucous membranes. Neck: No JVD. No bruit. Cardiovascular: Regular. No S-4. Normal S-1 and S-2. No S-3. No murmurs, rubs or gallops. Pulmonary: Clear to auscultation bilaterally. No rales, rhonchi, or wheezing. Abdomen: Bowel sounds x 4, soft. No rebound, guarding or tenderness. No organomegaly. Extremities: No clubbing, cyanosis or edema. +2 pedal pulses bilaterally. Skin: Warm and dry. Results & Data Vital Signs (Past 12 Hours) Vital Signs Temp Pulse Pulse Pulse Resp BP BP 07/03/19 07:38 37.2 C 101 H 19 131/73 07/03/19 04:56 112 H 108/66 07/03/19 04:21 107 H 107/74 07/03/19 03:39 150 H 110/74 07/03/19 03:11 134 H 111/77 07/03/19 02:48 112 H 123/74 07/03/19 02:14 37.0 C 122 H 16 127/73 07/03/19 01:47 136 H 17 103/90 07/03/19 01:01 147 H 23 114/58 L 07/03/19 00:30 167 H 22 99/62 L 07/03/19 00:15 158 H 16 07/03/19 00:11 141 H 16 123/95 07/03/19 00:00 141 H 14 97/79 L 07/02/19 23:55 144 H 18 132/121 H 07/02/19 23:53 160 H 18 07/02/19 23:50 173 H 12 98/65 L 07/02/19 23:46 188 H 17 158/76 H 07/02/19 23:45 189 H 20 07/02/19 23:30 97 H 22 136/77 07/02/19 23:27 97 H 22 145/77 H Pulse Ox 07/03/19 07:38 94 07/03/19 04:56 07/03/19 04:21 07/03/19 03:39 07/03/19 03:11 07/03/19 02:48 07/03/19 02:14 95 07/03/19 01:47 96 07/03/19 01:01 96 07/03/19 00:30 94 07/03/19 00:15 98 07/03/19 00:11 97 07/03/19 00:00 99 07/02/19 23:55 99 07/02/19 23:53 100 07/02/19 23:50 99 07/02/19 23:46 99 07/02/19 23:45 99 07/02/19 23:30 96 07/02/19 23:27 93 Laboratory Results Laboratory Results - last 24 hr 07/02/19 07/02/19 07/02/19 21:08 21:08 21:08 WBC 5.11 RBC 4.39 Hgb 15.2 Hct 43.0 MCV 97.9 MCH 34.6 H MCHC 35.3 RDW Std Deviation 46.1 RDW Coeff of Serg 13.0 Plt Count 153 MPV 10.9 H Immature Gran % (Auto) 0.2 Neut % (Auto) 72.2 Lymph % (Auto) 14.7 [place] % (Auto) 11.5 Eos % (Auto) 0.4 Baso % (Auto) 1.0 Immature Gran # (Auto) 0.01 Neut # (Auto) 3.69 Lymph # (Auto) 0.75 L [place] # (Auto) 0.59 Eos # (Auto) 0.02 Baso # (Auto) 0.05 RBC Morphology Peripher Smr Path Cons ESR PT INR APTT PTT Ratio Sodium 134 L Potassium 3.5 Chloride 99 Carbon Dioxide 26 Anion Gap 10.0 BUN 19 H Creatinine 0.86 Est Cr Clr Drug Dosing 81.9 Est GFR ( Amer) 88.8 Est GFR (Non-Af Amer) 76.6 BUN/Creatinine Ratio 22.5 H Glucose 108 H Calcium 8.8 Magnesium Total Bilirubin 3.9 H Direct Bilirubin AST 829 H ALT 799 H Alkaline Phosphatase 181 H Troponin I Total Protein 8.0 Albumin 3.9 Globulin 4.1 H Albumin/Globulin Ratio 1.0 Lipase Cancelled TSH 1.770 Urine Color Urine Appearance Urine pH Ur Specific [place] Urine Protein Urine Glucose (UA) Urine Ketones Urine Blood Urine Nitrite Urine Bilirubin Urine Urobilinogen Ur Leukocyte Esterase Urine RBC Urine WBC Ur Epithelial Cells Urine Bacteria Urine Mucus Salicylates < 1.7 L Urine Opiates Screen Ur Methadone, Qual Acetaminophen < 2 L Urine Barbiturates Ur Phencyclidine (PCP) U Amphetamin/Meth Scrn MDMA (Ecstasy) Screen U Benzodiazepines Scrn Ur Cocaine Metabolite U Marijuana (THC) Screen Ethyl Alcohol mg/dL DAMON Screen Anaplasma Smear A. phagocytophilum DNA Lyme Disease IgG Ab Lyme Disease IgM Ab EBV Capsid Ag IgG Ab EBV Capsid Ag IgM Ab EBV EA Restrict+Diffuse EBV Nuclear Antigen Ab Hepatitis A IgM Ab Hep Bs Antigen Hep B Core IgM Ab Hepatitis C Antibody Monoscreen Miscellaneous Test 07/02/19 07/02/19 07/02/19 21:08 21:08 21:08 WBC RBC Hgb Hct MCV MCH MCHC RDW Std Deviation RDW Coeff of Serg Plt Count MPV Immature Gran % (Auto) Neut % (Auto) Lymph % (Auto) [place] % (Auto) Eos % (Auto) Baso % (Auto) Immature Gran # (Auto) Neut # (Auto) Lymph # (Auto) [place] # (Auto) Eos # (Auto) Baso # (Auto) RBC Morphology Peripher Smr Path Cons ESR PT INR APTT PTT Ratio Sodium Potassium Chloride Carbon Dioxide Anion Gap BUN Creatinine Est Cr Clr Drug Dosing Est GFR ( Amer) Est GFR (Non-Af Amer) BUN/Creatinine Ratio Glucose Calcium Magnesium Total Bilirubin Direct Bilirubin AST ALT Alkaline Phosphatase Troponin I Total Protein Albumin Globulin Albumin/Globulin Ratio Lipase TSH Urine Color Urine Appearance Urine pH Ur Specific [place] Urine Protein Urine Glucose (UA) Urine Ketones Urine Blood Urine Nitrite Urine Bilirubin Urine Urobilinogen Ur Leukocyte Esterase Urine RBC Urine WBC Ur Epithelial Cells Urine Bacteria Urine Mucus Salicylates Urine Opiates Screen Ur Methadone, Qual Acetaminophen Urine Barbiturates Ur Phencyclidine (PCP) U Amphetamin/Meth Scrn MDMA (Ecstasy) Screen U Benzodiazepines Scrn Ur Cocaine Metabolite U Marijuana (THC) Screen Ethyl Alcohol mg/dL < 3.0 DAMON Screen Anaplasma Smear A. phagocytophilum DNA Lyme Disease IgG Ab Lyme Disease IgM Ab EBV Capsid Ag IgG Ab EBV Capsid Ag IgM Ab EBV EA Restrict+Diffuse EBV Nuclear Antigen Ab Hepatitis A IgM Ab Hep Bs Antigen Neg Hep B Core IgM Ab Hepatitis C Antibody Neg Monoscreen Negative Miscellaneous Test 07/02/19 07/02/19 07/02/19 21:08 21:15 21:15 WBC RBC Hgb Hct MCV MCH MCHC RDW Std Deviation RDW Coeff of Serg Plt Count MPV Immature Gran % (Auto) Neut % (Auto) Lymph % (Auto) [place] % (Auto) Eos % (Auto) Baso % (Auto) Immature Gran # (Auto) Neut # (Auto) Lymph # (Auto) [place] # (Auto) Eos # (Auto) Baso # (Auto) RBC Morphology Peripher Smr Path Cons ESR 23 H PT INR APTT PTT Ratio Sodium Potassium Chloride Carbon Dioxide Anion Gap BUN Creatinine Est Cr Clr Drug Dosing Est GFR ( Amer) Est GFR (Non-Af Amer) BUN/Creatinine Ratio Glucose Calcium Magnesium Total Bilirubin Direct Bilirubin AST ALT Alkaline Phosphatase Troponin I Total Protein Albumin Globulin Albumin/Globulin Ratio Lipase TSH Urine Color Yellow Urine Appearance Slightly Cloudy Urine pH 5.0 Ur Specific [place] >= 1.030 Urine Protein Trace H Urine Glucose (UA) Negative Urine Ketones 2+ H Urine Blood 3+ H Urine Nitrite Negative Urine Bilirubin 2+ H Urine Urobilinogen Negative Ur Leukocyte Esterase Negative Urine RBC 5-10 H Urine WBC 10-30 H Ur Epithelial Cells >30 H Urine Bacteria 2+ H Urine Mucus Present A Salicylates Urine Opiates Screen Neg Ur Methadone, Qual Neg Acetaminophen Urine Barbiturates Neg Ur Phencyclidine (PCP) Neg U Amphetamin/Meth Scrn Neg MDMA (Ecstasy) Screen Neg U Benzodiazepines Scrn Neg Ur Cocaine Metabolite Neg U Marijuana (THC) Screen Neg Ethyl Alcohol mg/dL DAMON Screen Anaplasma Smear A. phagocytophilum DNA Lyme Disease IgG Ab Lyme Disease IgM Ab EBV Capsid Ag IgG Ab EBV Capsid Ag IgM Ab EBV EA Restrict+Diffuse EBV Nuclear Antigen Ab Hepatitis A IgM Ab Hep Bs Antigen Hep B Core IgM Ab Hepatitis C Antibody Monoscreen Miscellaneous Test 07/02/19 07/02/19 07/03/19 23:09 23:09 00:10 WBC RBC Hgb Hct MCV MCH MCHC RDW Std Deviation RDW Coeff of Serg Plt Count MPV Immature Gran % (Auto) Neut % (Auto) Lymph % (Auto) [place] % (Auto) Eos % (Auto) Baso % (Auto) Immature Gran # (Auto) Neut # (Auto) Lymph # (Auto) [place] # (Auto) Eos # (Auto) Baso # (Auto) RBC Morphology Peripher Smr Path Cons ESR PT 12.1 H INR 1.2 H APTT 26.8 PTT Ratio 1.0 Sodium Potassium Chloride Carbon Dioxide Anion Gap BUN Creatinine Est Cr Clr Drug Dosing Est GFR ( Amer) Est GFR (Non-Af Amer) BUN/Creatinine Ratio Glucose Calcium Magnesium Total Bilirubin Direct Bilirubin AST ALT Alkaline Phosphatase Troponin I < 0.015 Total Protein Albumin Globulin Albumin/Globulin Ratio Lipase 427 H TSH Urine Color Urine Appearance Urine pH Ur Specific [place] Urine Protein Urine Glucose (UA) Urine Ketones Urine Blood Urine Nitrite Urine Bilirubin Urine Urobilinogen Ur Leukocyte Esterase Urine RBC Urine WBC Ur Epithelial Cells Urine Bacteria Urine Mucus Salicylates Urine Opiates Screen Ur Methadone, Qual Acetaminophen Urine Barbiturates Ur Phencyclidine (PCP) U Amphetamin/Meth Scrn MDMA (Ecstasy) Screen U Benzodiazepines Scrn Ur Cocaine Metabolite U Marijuana (THC) Screen Ethyl Alcohol mg/dL DAMON Screen Pending Anaplasma Smear A. phagocytophilum DNA Lyme Disease IgG Ab Lyme Disease IgM Ab EBV Capsid Ag IgG Ab Pending EBV Capsid Ag IgM Ab Pending EBV EA Restrict+Diffuse Pending EBV Nuclear Antigen Ab Pending Hepatitis A IgM Ab Pending Hep Bs Antigen Hep B Core IgM Ab Pending Hepatitis C Antibody Monoscreen Miscellaneous Test 07/03/19 07/03/19 07/03/19 05:21 05:22 05:22 WBC 8.34 RBC 4.03 L Hgb 13.9 Hct 38.9 MCV 96.5 MCH 34.5 H MCHC 35.7 RDW Std Deviation 45.3 RDW Coeff of Serg 12.9 Plt Count 153 MPV 10.9 H Immature Gran % (Auto) 0.2 Neut % (Auto) 75.7 Lymph % (Auto) 12.1 [place] % (Auto) 11.4 Eos % (Auto) 0.2 Baso % (Auto) 0.4 Immature Gran # (Auto) 0.02 Neut # (Auto) 6.31 Lymph # (Auto) 1.01 L [place] # (Auto) 0.95 H Eos # (Auto) 0.02 Baso # (Auto) 0.03 RBC Morphology Unremarkable Peripher Smr Path Cons Cancelled ESR PT 13.3 H INR 1.3 H APTT PTT Ratio Sodium Potassium Chloride Carbon Dioxide Anion Gap BUN Creatinine Est Cr Clr Drug Dosing Est GFR ( Amer) Est GFR (Non-Af Amer) BUN/Creatinine Ratio Glucose Calcium Magnesium Total Bilirubin Direct Bilirubin AST ALT Alkaline Phosphatase Troponin I Total Protein Albumin Globulin Albumin/Globulin Ratio Lipase TSH Urine Color Urine Appearance Urine pH Ur Specific [place] Urine Protein Urine Glucose (UA) Urine Ketones Urine Blood Urine Nitrite Urine Bilirubin Urine Urobilinogen Ur Leukocyte Esterase Urine RBC Urine WBC Ur Epithelial Cells Urine Bacteria Urine Mucus Salicylates Urine Opiates Screen Ur Methadone, Qual Acetaminophen Cancelled Urine Barbiturates Ur Phencyclidine (PCP) U Amphetamin/Meth Scrn MDMA (Ecstasy) Screen U Benzodiazepines Scrn Ur Cocaine Metabolite U Marijuana (THC) Screen Ethyl Alcohol mg/dL DAMON Screen Anaplasma Smear See Comment A. phagocytophilum DNA Lyme Disease IgG Ab Lyme Disease IgM Ab EBV Capsid Ag IgG Ab EBV Capsid Ag IgM Ab EBV EA Restrict+Diffuse EBV Nuclear Antigen Ab Hepatitis A IgM Ab Hep Bs Antigen Hep B Core IgM Ab Hepatitis C Antibody Monoscreen Miscellaneous Test 07/03/19 07/03/19 07/03/19 05:22 05:22 05:22 WBC RBC Hgb Hct MCV MCH MCHC RDW Std Deviation RDW Coeff of Serg Plt Count MPV Immature Gran % (Auto) Neut % (Auto) Lymph % (Auto) [place] % (Auto) Eos % (Auto) Baso % (Auto) Immature Gran # (Auto) Neut # (Auto) Lymph # (Auto) [place] # (Auto) Eos # (Auto) Baso # (Auto) RBC Morphology Peripher Smr Path Cons ESR PT INR APTT PTT Ratio Sodium 138 Potassium 2.7 L D Chloride 105 Carbon Dioxide 22 Anion Gap 11.0 BUN 13 Creatinine 0.68 Est Cr Clr Drug Dosing 103.9 Est GFR ( Amer) 114.9 Est GFR (Non-Af Amer) 99.2 BUN/Creatinine Ratio 19.0 Glucose 176 H Calcium 7.5 L Magnesium 1.8 Total Bilirubin 3.1 H Direct Bilirubin 1.7 H AST 519 H ALT 596 H Alkaline Phosphatase 129 H Troponin I < 0.015 Total Protein 6.7 Albumin 2.9 L Globulin Albumin/Globulin Ratio Lipase 354 TSH Urine Color Urine Appearance Urine pH Ur Specific [place] Urine Protein Urine Glucose (UA) Urine Ketones Urine Blood Urine Nitrite Urine Bilirubin Urine Urobilinogen Ur Leukocyte Esterase Urine RBC Urine WBC Ur Epithelial Cells Urine Bacteria Urine Mucus Salicylates Urine Opiates Screen Ur Methadone, Qual Acetaminophen Urine Barbiturates Ur Phencyclidine (PCP) U Amphetamin/Meth Scrn MDMA (Ecstasy) Screen U Benzodiazepines Scrn Ur Cocaine Metabolite U Marijuana (THC) Screen Ethyl Alcohol mg/dL DAMON Screen Anaplasma Smear A. phagocytophilum DNA Pending Lyme Disease IgG Ab Negative Lyme Disease IgM Ab Negative EBV Capsid Ag IgG Ab EBV Capsid Ag IgM Ab EBV EA Restrict+Diffuse EBV Nuclear Antigen Ab Hepatitis A IgM Ab Hep Bs Antigen Hep B Core IgM Ab Hepatitis C Antibody Monoscreen Miscellaneous Test 07/03/19 07/03/19 07/03/19 05:22 08:44 11:56 WBC RBC Hgb Hct MCV MCH MCHC RDW Std Deviation RDW Coeff of Serg Plt Count MPV Immature Gran % (Auto) Neut % (Auto) Lymph % (Auto) [place] % (Auto) Eos % (Auto) Baso % (Auto) Immature Gran # (Auto) Neut # (Auto) Lymph # (Auto) [place] # (Auto) Eos # (Auto) Baso # (Auto) RBC Morphology Peripher Smr Path Cons ESR PT INR APTT 77.8 H* PTT Ratio 2.9 Sodium Pending Potassium Pending Chloride Pending Carbon Dioxide Pending Anion Gap Pending BUN Pending Creatinine Pending Est Cr Clr Drug Dosing Pending Est GFR ( Amer) Pending Est GFR (Non-Af Amer) Pending BUN/Creatinine Ratio Pending Glucose Pending Calcium Pending Magnesium Total Bilirubin Direct Bilirubin AST ALT Alkaline Phosphatase Troponin I Pending Total Protein Albumin Globulin Albumin/Globulin Ratio Lipase TSH Urine Color Urine Appearance Urine pH Ur Specific [place] Urine Protein Urine Glucose (UA) Urine Ketones Urine Blood Urine Nitrite Urine Bilirubin Urine Urobilinogen Ur Leukocyte Esterase Urine RBC Urine WBC Ur Epithelial Cells Urine Bacteria Urine Mucus Salicylates Urine Opiates Screen Ur Methadone, Qual Acetaminophen Urine Barbiturates Ur Phencyclidine (PCP) U Amphetamin/Meth Scrn MDMA (Ecstasy) Screen U Benzodiazepines Scrn Ur Cocaine Metabolite U Marijuana (THC) Screen Ethyl Alcohol mg/dL DAMON Screen Anaplasma Smear A. phagocytophilum DNA Lyme Disease IgG Ab Lyme Disease IgM Ab EBV Capsid Ag IgG Ab EBV Capsid Ag IgM Ab EBV EA Restrict+Diffuse EBV Nuclear Antigen Ab Hepatitis A IgM Ab Hep Bs Antigen Hep B Core IgM Ab Hepatitis C Antibody Monoscreen Miscellaneous Test Pending Medications Administered Current Inpatient Medications Folic Acid (Folvite) 1 mg PO QAM [facility] Stop: 08/03/19 08:59 Sodium Chloride (Nss 1000ml) 1,000 mls @ 125 mls/hr IV .Q8H [facility] Stop: 08/02/19 02:01 Last Admin: 07/03/19 10:07 Dose: 125 mls/hr Documented by: Lorazepam (Ativan) 1 mg in 2 mls @ 2 mls/min IV Q4H PRN PRN Reason: Anxiety/Agitation Stop: 08/02/19 02:01 Heparin Sodium/Dextrose (Heparin Sodium/Dextrose) 25,000 units in 500 mls @ 22 mls/hr IV .[id number] [facility]; Protocol Stop: 08/02/19 02:01 Last Titration: 07/03/19 10:06 Dose: 1,100 units/hr, 22 mls/hr Documented by: Ceftriaxone Sodium 2,000 mg/ (Dextrose) 70 mls @ 100 mls/hr IV Q24H [facility]; Protocol Stop: 07/07/19 20:59 Lorazepam (Ativan) 1 mg PO ONE PRN; Protocol PRN Reason: EtoH Withdrawal AWSS 6-10 Metoprolol Tartrate (Lopressor) 12.5 mg PO BID [facility] Stop: 08/02/19 09:59 Last Admin: 07/03/19 10:22 Dose: 12.5 mg Documented by: Miscellaneous Information () 1 ea N/A UD PRN PRN Reason: Consult Stop: 08/02/19 11:08 Multivitamins/Minerals (Multivitamin W/ Minerals Tab) 1 tab PO [facility] Stop: 08/02/19 08:59 Last Admin: 07/03/19 09:30 Dose: 1 tab Documented by: Nitroglycerin (Nitrostat) 0.4 mg SL UD PRN PRN Reason: Chest Pain Stop: 08/02/19 02:01 Ondansetron HCl (Zofran) 4 mg IV Q6H PRN PRN Reason: Nausea Stop: 08/02/19 02:01 Last Admin: 07/03/19 02:50 Dose: 4 mg Documented by: Pantoprazole Sodium (Protonix) 40 mg PO [facility] Stop: 07/06/19 09:01 Thiamine HCl (Vitamin B-1) 100 mg PO [facility] Stop: 08/02/19 08:59 Last Admin: 07/03/19 09:30 Dose: 100 mg Documented by:
--- NOTE | 2019-07-03 11:03 | Hospitalist Progress Note ---
Date of Service July 03, 2019 Assessment & Plan (1) Atrial fibrillation with RVR: 54 yr old F presented to ED 07/02/19 2/2 N/V, ill feeling along with auditory hallucinations. Pt found to be in Afib with RVR received Cardizem bolus and drip in ED Started on IV heparin Converted to normal sinus rhythm at 0354am with intermittent sinus tach echocardiogram reviewed and WNL cardiology consulted - appreciate their input metoprolol initiated monitor electrolytes and replete as needed ( Keep K > 4, Mag > 2.0) TSH WNL drug tox screen negative lyme screen/anaplasma screen pending (2) Elevated LFTs: Upon admission AST 519, ALT 596, total bili 3.1, alk phos 129 CT scan abd/pelvis: Diffusely heterogeneous appearance of the liver with minimal marginal nodularity. Correlate clinically to exclude early cirrhotic liver disease. Abd U/S: Several small gallbladder polyps. Normal caliber bile ducts DAMON, Hepatitis panel, EBV, CMV pending GI consulted: Appreciate their recommendations Start PPI daily Concern for cirrhosis with MELD 14 Can continue NAC per protocol per GI Will need outpt GI follow up (3) Hypokalemia: pt given 60meq KCL x 1 along with IV supplemenation repeat K at 12:00pm replete as needed (4) Alcohol abuse: pt reports 2-3 ETOH drinks 3-4x/week with heavy ETOH use in college AWSS protocol prn lorazepam psych consulted ETOH negative on admission (5) Auditory hallucination: ? if 2/2 to ETOH abuse/withdrawl vs underlying psych process psych consulted (6) DVT prophylaxis: IV heparin Disposition: admitted to PCU; discharge to home when medically stable Follow up: PCP [facility] Patient was seen and examined in collaboration with Dr. Guzman, please see addendum Supervising Physician Co-Signing Physician Notes Attending addendum The patient was seen and examined in telemetry unit She was admitted with the abdominal discomfort/pain associated with nausea and vomiting and noted to have very high LFTs and later on atrial fibrillation He complains to have auditory hallucination and tremors of the hands Denies any chest pain and/or palpitation Abdominal discomfort and nausea, vomiting have been improving On examination Very anxious Hemodynamically stable Chest-clear to auscultate bilaterally Heart S1-S2-, regular, no murmur Abdomen-minimally distended, nontender, bowel sounds present no hepatosplenomegaly, Extremities-negative for any edema- [employer] ST[employer]-alert, awake and oriented x3, has tremors involving bilateral outstretched upper extremities Labs and imaging studies reviewed Has abnormal LFTs likely secondary to use of alcohol and may be complicated by recent viral illness Await viral serology and continue supportive care Doubt any Tylenol overdose Appreciate GI input and recommendation Atrial fibrillation-could be secondary to withdrawal from alcohol. Reverted to sinus rhythm and will continue with small dose of beta-neil Auditory hallucination Has generalized anxiety disorder and will need to have psychiatric evaluation Agree with the assessment plan as outlined above by TRISTAN [place] Dr Subjective Patient was seen and examined in room 239-2. Follow-up A. fib with RVR, elevated LFTs, questionable UTI. Patient was admitted 07/02/2019 after presenting to ER secondary to persistent anxiety/panic attacks, auditory hallucinations. When in ED she was found to have A. fib with RVR and elevated LFTs. She was placed on IV heparin and diltiazem drip. She received IV Ativan for anxiety. She also received IV Rocephin for concerns for UTI. Currently she feels improved from presentation. She admits to having nausea/vomiting from last Saturday to Saturday. Overall not feeling well. She had a coworker that had a, "flu," and thought that she had contracted as well. Approximately 1 week ago her son's friend committed suicide and this has affected her significantly. Since Saturday she has been experiencing intermittent frequent anxiety, feeling like she has to take a deep breath, palpitations, auditory hallucinations. "I can hear music or sounds but there is nothing playing." Patient denies any illicit drug use or tobacco use. She does not take any prescription medication. Occasional rcwv-atd-bkeriny ibuprofen, rare Tylenol and rare supplement. Alcohol use 2 to 3 glasses of wine/wine coolers 3 to 4 days a week for many ye ars. Heavy alcohol use in college. No history of prior alcohol withdrawal. Review of Systems Review of Systems: All systems reviewed & are unremarkable except as noted in HPI & below Physical Exam Physical Exam: Gen: WD/WN, NAD, sitting up in bed, pleasant, A&O x3 HEENT: Normocephalic, atraumatic, conjunctivae moist, sclerae anicteric, mucous membranes moist Lung: Clear to Auscultation bilaterally, no wheezes/rales/rhonchi Heart: Regular rate, regular rhythm, no murmurs, rubs, or gallops Abdomen: Soft, NT, ND +BS x 4 Extremities: No edema, slight shaking/tremor of b/l hands when arms extended Skin: Warm, no rash, negative turgor. Results & Data Vital Signs (Past 12 Hours) Vital Signs Temp Pulse Pulse Pulse Resp BP BP 07/03/19 07:38 37.2 C 101 H 19 131/73 07/03/19 04:56 112 H 108/66 07/03/19 04:21 107 H 107/74 07/03/19 03:39 150 H 110/74 07/03/19 03:11 134 H 111/77 07/03/19 02:48 112 H 123/74 07/03/19 02:14 37.0 C 122 H 16 127/73 07/03/19 01:47 136 H 17 103/90 07/03/19 01:01 147 H 23 114/58 L 07/03/19 00:30 167 H 22 99/62 L 07/03/19 00:15 158 H 16 07/03/19 00:11 141 H 16 123/95 07/03/19 00:00 141 H 14 97/79 L 07/02/19 23:55 144 H 18 132/121 H 07/02/19 23:53 160 H 18 07/02/19 23:50 173 H 12 98/65 L 07/02/19 23:46 188 H 17 158/76 H 07/02/19 23:45 189 H 20 07/02/19 23:30 97 H 22 136/77 07/02/19 23:27 97 H 22 145/77 H Pulse Ox 07/03/19 07:38 94 07/03/19 04:56 07/03/19 04:21 07/03/19 03:39 07/03/19 03:11 07/03/19 02:48 07/03/19 02:14 95 07/03/19 01:47 96 07/03/19 01:01 96 07/03/19 00:30 94 07/03/19 00:15 98 07/03/19 00:11 97 07/03/19 00:00 99 07/02/19 23:55 99 07/02/19 23:53 100 07/02/19 23:50 99 07/02/19 23:46 99 07/02/19 23:45 99 07/02/19 23:30 96 07/02/19 23:27 93 Laboratory Results Short CBC 07/02/19 07/03/19 Range/Units 21:08 05:22 WBC 5.11 8.34 (4.8-10.8) K/uL Hgb 15.2 13.9 (12.0-16.0) g/dL Hct 43.0 38.9 (37-47) % Plt Count 153 153 (130-400) K/uL BMP 07/02/19 07/03/19 21:08 05:22 Sodium 134 L 138 Potassium 3.5 2.7 L D Chloride 99 105 Carbon Dioxide 26 22 BUN 19 H 13 Creatinine 0.86 0.68 Glucose 108 H 176 H Calcium 8.8 7.5 L Cardiac Enzymes 07/03/19 07/03/19 Range/Units 00:10 05:22 Troponin I < 0.015 < 0.015 (0-0.045) ng/ml Liver Function 07/02/19 07/03/19 Range/Units 21:08 05:22 Total Bilirubin 3.9 H 3.1 H (0.2-1) mg/dl Direct Bilirubin 1.7 H (0-0.2) mg/dl AST 829 H 519 H (15-37) U/L ALT 799 H 596 H (12-78) U/L Alkaline Phosphatase 181 H 129 H (45-117) U/L Albumin 3.9 2.9 L (3.4-5.0) gm/dl Urine 07/02/19 Range/Units 21:15 Urine Color Yellow Urine Appearance Slightly Cloudy (Clear) Urine pH 5.0 (4.5-7.5) Ur Specific [place] >= 1.030 (1.000-1.030) Urine Protein Trace H (Negative) Urine Glucose (UA) Negative (Negative) Medications Administered Sodium Chloride (Nss 1000ml) 1,000 mls @ 125 mls/hr IV .Q8H DRAKE Stop: 08/02/19 02:01 Last Admin: 07/03/19 10:07 Dose: 125 mls/hr Documented by: [id number] Infusion: 07/03/19 10:07 Dose: 125 mls/hr Documented by: [id number] Admin: 07/03/19 02:38 Dose: 125 mls/hr Documented by: [id number] Heparin Sodium/Dextrose (Heparin Sodium/Dextrose) 25,000 units in 500 mls @ 22 mls/hr IV .[id number] [facility]; Protocol Stop: 08/02/19 02:01 Last Titration: 07/03/19 10:06 Dose: 1,100 units/hr, 22 mls/hr Documented by: [id number] Cosigned by: [id number] Titration: 07/03/19 07:15 Dose: 1,250 units/hr, 25 mls/hr Documented by: [id number] Cosigned by: [id number] Admin: 07/03/19 02:41 Dose: 1,250 units/hr, 25 mls/hr Documented by: [id number] Cosigned by: [id number] Metoprolol Tartrate (Lopressor) 12.[address] [facility] Stop: 08/02/19 09:59 Last Admin: 07/03/19 10:22 Dose: 12.5 mg Documented by: [id number] Multivitamins/Minerals (Multivitamin W/ Minerals Tab) 1 tab PO [facility] Stop: 08/02/19 08:59 Last Admin: 07/03/19 09:30 Dose: 1 tab Documented by: [id number] Ondansetron HCl (Zofran) 4 mg IV Q6H PRN PRN Reason: Nausea Stop: 08/02/19 02:01 Last Admin: 07/03/19 02:50 Dose: 4 mg Documented by: [id number] Thiamine HCl (Vitamin B-1) [address] [facility] Stop: 08/02/19 08:59 Last Admin: 07/03/19 09:30 Dose: 100 mg Documented by: [id number] Discontinued Medications Clonidine HCl ([place]ck[place]-Loq-0 0.3mg/24hr) 1 patch TD NOW STA Stop: 07/02/19 22:10 Last Admin: 07/02/19 22:12 Dose: Not Given Documented by: [id number] Diltiazem HCl (Cardizem) 10 mg IV NOW STA Stop: 07/03/19 01:48 Last Admin: 07/03/19 02:30 Dose: 10 mg Documented by: [id number] Cosigned by: [id number] Heparin Sodium/Dextrose () 1 ea IV Q15M DRAKE; Protocol Stop: 08/02/19 02:01 Last Admin: 07/03/19 02:46 Dose: Not Given Documented by: [id number] Admin: 07/03/19 02:45 Dose: Not Given Documented by: [id number] Admin: 07/03/19 02:45 Dose: Not Given Documented by: [id number] Lorazepam (Ativan) 1 mg in 2 mls @ 2 mls/min IV NOW STA Stop: 07/02/19 20:59 Last Admin: 07/02/19 21:28 Dose: 2 mls/min Documented by: [id number] Sodium Chloride (Nss 1000ml) 1,000 mls @ 999 mls/hr IV .Q1H1M ONE Stop: 07/02/19 21:58 Last Infusion: 07/02/19 22:29 Dose: 0 mls/hr Documented by: [id number] Admin: 07/02/19 21:27 Dose: 999 mls/hr Documented by: [id number] Ceftriaxone Sodium (Rocephin) 2,000 mg in 70 mls @ 140 mls/hr IV NOW STA Stop: 07/02/19 22:18 Last Infusion: 07/02/19 23:29 Dose: 0 mls/hr Documented by: [id number] Admin: 07/02/19 22:12 Dose: 140 mls/hr Documented by: [id number] Multivitamins 10 ml/ Thiamine HCl 100 mg/ Folic Acid 1 mg/Sodium Chloride 1,011.2 mls @ 1,011.2 mls/hr IV .Q1H ONE Stop: 07/02/19 23:08 Last Infusion: 07/03/19 00:59 Dose: 0 mls/hr Documented by: [id number] Admin: 07/02/19 23:38 Dose: 1,011.2 mls/hr Documented by: [id number] Acetylcysteine 12,150 mg/ (Dextrose) 260.75 mls @ 200 mls/hr IV ONCE ONE Stop: 07/02/19 23:34 Last Infusion: 07/03/19 02:55 Dose: 0 mls/hr Documented by: [id number] Admin: 07/03/19 00:24 Dose: 200 mls/hr Documented by: [id number] Sodium Chloride (Nss) 500 mls @ 500 mls/hr IV .Q1H DRAKE Stop: 07/03/19 01:44 Last Infusion: 07/03/19 00:58 Dose: 0 mls/hr Documented by: [id number] Admin: 07/02/19 23:55 Dose: 500 mls/hr Documented by: [id number] Diltiazem HCl 125 mg/ Dextrose 125 mls @ 5 mls/hr IV .Q24H DRAKE; Protocol Stop: 08/02/19 01:46 Last Titration: 07/03/19 10:03 Dose: 0 mg/hr, 0 mls/hr Documented by: [id number] Titration: 07/03/19 07:16 Dose: 5 mg/hr, 5 mls/hr Documented by: [id number] Cosigned by: [id number] Titration: 07/03/19 04:32 Dose: 5 mg/hr, 5 mls/hr Documented by: [id number] Titration: 07/03/19 03:42 Dose: 15 mg/hr, 15 mls/hr Documented by: [id number] Titration: 07/03/19 03:12 Dose: 10 mg/hr, 10 mls/hr Documented by: [id number] Admin: 07/03/19 02:54 Dose: 5 mg/hr, 5 mls/hr Documented by: [id number] Cosigned by: [id number] Potassium Chloride (K Elian / Wtr) 10 meq in 100 mls @ 100 mls/hr IV Q1H DRAKE Stop: 07/03/19 08:59 Last Admin: 07/03/19 10:21 Dose: 100 mls/hr Documented by: [id number] Infusion: 07/03/19 10:21 Dose: 100 mls/hr Documented by: [id number] Admin: 07/03/19 09:24 Dose: 100 mls/hr Documented by: [id number] Lorazepam (Ativan) 0.5 mg in 1 mls @ 1 mls/min IV NOW STA Stop: 07/03/19 09:22 Last Admin: 07/03/19 10:21 Dose: 1 mls/min Documented by: [id number] Ioversol (Optiray 320 100ml) 93 ml IV ONCE PRN PRN Reason: Interaction Checking Stop: 07/06/19 23:05 Last Admin: 07/02/19 23:06 Dose: 93 ml Documented by: [id number] Metoprolol Tartrate (Lopressor) Confirm Administered Dose 5 mg IV .STK-MED ONE Stop: 07/02/19 23:47 Last Admin: 07/03/19 00:56 Dose: Not Given Documented by: [id number] Metoprolol Tartrate (Lopressor) 5 mg IV NOW STA Stop: 07/03/19 00:39 Last Admin: 07/02/19 23:49 Dose: 5 mg Documented by: [id number] Miscellaneous (Check Clonidine Patch) 1 ea N/A QS DRAKE Stop: 08/02/19 00:00 Last Admin: 07/03/19 02:19 Dose: Not Given Documented by: [id number] Potassium Chloride (Klor-Con M20) 60 meq PO NOW STA Stop: 07/03/19 06:49 Last Admin: 07/03/19 09:23 Dose: 60 meq Documented by: [id number]
[2019-07-03] MEDS ORDERED: ROCEPHIN: PHARMACY CONSULT IN PROGRESS PRN (11:09)
[2019-07-03 12:29] LABS: BUN Creatinine Ratio 14.5 (10-20); Blood Urea Nitrogen 9 mg/dl (7-18); Calcium 7.9 mg/dl (8.5-10.1); Carbon Dioxide 23 mmol/L (21-32); Chloride 107 mmol/L (98-107); Creatinine Clr Calc Pharmacy 108.7 ml/min; Est GFR (African American) 116.7; Est GFR (Non-African American) 100.7; Glucose 87 mg/dl (70-99); Potassium 3.6 mmol/L (3.5-5.1); Sodium 137 mmol/L (136-145)
[2019-07-03] MEDS: PANTOprazole 40 MG TAB PO SCH (12:36)
[2019-07-03 12:49] LABS: Troponin I < 0.015 ng/ml (0-0.045)
--- NOTE | 2019-07-03 14:24 | Psychiatric Consultation ---
Date of Consultation July 03, 2019 Impression / Recommendations Impression 54-year-old female admitted medically on 07/02/19 after presenting to the ED with intractable nausea and vomiting. Pt admits to increased anxiety recently related to ongoing work stress as well as the recent suicide of a family friend. She also reports experiencing nausea, vomiting, and general malaise believed to be due to influenza. Pt does admit that she has not slept in about 4 nights. This, in combination with increased stress and UTI may contributing to the visual and auditory hallucinations the patient has been reporting episodically. Given that the patient has no prior psychiatric history, these hallucinations may be hypnagogic/hypnopompic in nature, and exacerbated by sleep deprivation. It also cannot be ruled out that they are the result of a medication reaction. It is possible they may be a result of alcohol withdrawal, A beta-neil was started by cardiology, which may provide some benefit for patients anxiety. Pt is ambivalent about her desire to take a daily medication to target anxiety as she feels she will have a new perspective and motivation to manage her symptoms differently. Pt was offered prn hydroxyzine for acute anxiety as well as to encourage sleep risks, benefits, and potential side effects were discussed. Pt verbalized understanding and was agreeable to trial of the medication. Would highly encourage utilizing medication as needed to encourage decent sleep this evening. Pt denies SI/HI and with some sleep admits she feels safe with returning home after medical clearance. is involved in this discussion and agrees with this plan as well. There is no indication that inpatient psychiatric treatment would be necessary at this time. Will continue to follow during patients admission. Appreciate the opportunity to participate in the treatment of this patient. Dr. Peter Mosqueda was directly involved in review and discussion of the patient's case and participated in medical decision making regarding treatment recommendations. PLAN: 07/03 - Continue metoprolol per cardiology recommendations; may provide some benefit for anxiety as well - Hydroxyzine 25mg PO q4h prn acute anxiety; 50mg qHS prn insomnia may require a repeat dose if initial is ineffective - Heavily encourage sleep - utilize lorazepam if hydroxyzine is ineffective for this - No indication for inpatient psychiatric admission - Declines offer for referral for therapy or psychiatric medication management; not desiring long-term or daily medications Risk Factors Assessment Do You Have Access To A Gun?: Yes (only with access) CPT Code Initial Consultation: 27254 Psych History Identifying Data Erin Rhodes is a 54-year-old female admitted medically on 07/02/19 after presenting to the ED with intractable nausea and vomiting, presumed to be related to influenza. Pt was admitted medically after work-up suggested acute atrial fibrillation, UTI, and anxiety. Psychiatric consultation is requested to evaluate patient for severe anxiety, as well as report of hallucinations occurring in the past several days. Information is gathered from hospital documentation, the patients Jere, and the patient herself the combination of which is considered to be reliable. Erin Rhodes is a 54-year-old female admitted medically on 07/02/19 after presenting to the ED with intractable nausea and vomiting, presumed to be related to influenza. Pt was admitted medically after work-up suggested acute atrial fibrillation, UTI, and anxiety. Psychiatric consultation is requested to evaluate patient for severe anxiety, as well as report of hallucinations occurri ng in the past several days. Information is gathered from hospital documentation, the patients Jere, and the patient herself the combination of which is considered to be reliable. Chief Complaint "Honestly, [the anxiety] has mostly been with situations at work. That's what started it off." History of Present Illness Erin Rhodes is a 54-year-old female admitted medically on 07/02/19 after presenting to the ED with intractable nausea and vomiting, presumed to be related to influenza. Pt was admitted medically after work-up suggested acute atrial fibrillation, UTI, and anxiety. Psychiatric consultation is requested to evaluate patient for severe anxiety, as well as report of hallucinations occurring in the past several days. Pts case is reviewed and discussed with psychiatrist and psychiatric nurse liaison. Pt is cooperative with evaluation and is seen alone initially. Her enters the room part of the way through our encounter, and patient gives verbal permission for him to remain in the room. Pt admits to increased anxiety over the past several years Honestly, its mostly been situational at work, it started with that. Pt states that she has been experiencing increased frustration at work with unequal distribution of work and just passing out more work instead of hiring replacement people. Pt states some days just grinds on you harder than others. Pt states that while she gets along with her co-worker, and has a lot of support from her boss, she also tries to stay out of the drama whenever possible. Pt states, the anxiety has just been growing and growing. And then of course theres our friend, its been so hard. the patient shares of her familys involvement in helping to support a young man who was struggling with depression and recently took his own life. Pt states, we had prayed for him, been there for him, I just feel like we failed. Pt denies any safety concerns for herself, denying SI/HI, SIB, and symptoms of significant depression. Pt reports feeling mentally stuck when developed physical symptoms that she presumed to be due to influenza. Pt states that she eventually began to feel physically sick. While under continued stress, the patient states she attempted to increase her rest while battling the flu. She states that she had laid down to sleep and began hearing footsteps in her bedroom. She turned, expecting to see her , and states that no one was there. At home, she continued to hear things, like people moving things or walking around the house; but no one was there. Pt states that the visual hallucinations had not started until she was in the hospital, and admits even now to seeing little people in the face of the clock on her room. Pt admits that she has never experienced hallucinations before. She does admit that due to persistent vomiting, she has not slept in about 4 days. Pt did admit to consuming about 2-3 glasses of wine a night, at times more when celebrating special events. Pt denies feeling as though her alcohol use has been a concern or has led to significant problems. Pt denies SI, HI, SIB, paranoia, yolanda/hypomania, other symptoms more suggestive of a bipolar presentation, OCD, PTSD, eating disorder, and other specific psychiatric symptoms. Past Psychiatric History Previous Psych History: Pt denies any prior psychiatric treatment. Has multiple supports, but no formal history of therapy or medication management. Current Psychiatric Diagnosis: Anxiety, unspecified Outpatient Services: None Previous Psych Admissions: None Do You Have Access To A Gun?: Yes (only with access) History of Previous Suicide Attempt: No Past Medication Trials: None Allergies Allergy/AdvReac Type Severity Reaction Status Date / Time Penicillins Allergy Mild Unknown Verified 07/02/19 20:51 Family History Pt reports her family is "chaotic", but denies known psychiatric history. She repots her father and sister have a history of alcoholism. She admits 1 nicce had completed suicide. Substance Abuse History Pt denies tobacco use. She endorses consuming 2-3 glasses of wine daily, occasionally more for special events. Pt does not feel her consumption is a problem or has caused issues in the past. Pt denies use of other illicit substances. 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) Marital Status: ( of 29 years) Number Of Children: 4 children - 3 sons (28, 22, and 20); 1 daughter (26 and ) Beliefs That Will Affect Care: Worship History of Legal Problems: Denies Psychological Trauma History Comment: Denies Patient History Medical History No pertinent past medical history Surgical History No pertinent past surgical history Family History Other No pertinent family history Social History Preferred Language: Greek Communication Ability: Effective Special Programs Director Required: No Beliefs That Will Affect Care: None Current Living Situation: Spouse Other Information That Helps Us Care for You: No Feels Safe at Home: Yes Safety Concerns: Feels Safe At This Time Smoking Status: Former smoker Hx Alcohol Use: Yes Alcohol type: wine Physical Exam Psychiatric: Orientation: alert, oriented x 3 and cooperative ( and pleasant) Apperance: appropriately dressed, appropriately groomed and appeared stated age Overweight female laying in bed in no acute distress. Appropriately dressed in hospital gown. Hair appears clean and neatly styled. Level of grooming and hygiene appears adequate. Eye Contact: good eye contact Motor Behavior: no abnormal motor movements (observed while laying in bed) Speech: normal rate/rhythm/volume of speech (mildly hyperverbal, but is also familiar with this provider) Affect: mood congruent with affect; no anxious affect Mood: + anxious mood ("Just a lot of situations that have been stressful") Thought Process: goal directed thought process, clear/coherent thought process and thought association intact Thought Content: reality based without delusions; no hopelessness and no worthlessness Suicidal Thoughts: denies suicidal thoughts and denies suicidal intent Homicidal Thoughts: denies homicidal thoughts Hallucinations: + auditory hallucinations (episodic - hearing foot steps and radio music) and + visual hallucinations (began as "white orbs"; now seeing "little people" in the face of the clock) Cognition: recent memory grossly intact, remote memory grossly intact, attention grossly intact and language grossly intact Insight: good insight Judgement: good judgement Vital Signs (Past 24 Hours): Last Vital Signs Temp 36.4 C L 07/03/19 10:56 Pulse 83 07/03/19 10:56 Resp 19 07/03/19 10:56 BP 111/70 07/03/19 10:56 Pulse Ox 95 07/03/19 10:56 Review of Systems Constitutional: reports mild weakness Cardiovascular: denied Respiratory: denied Gastrointestinal: denied Neurological: denied Psychiatric: denies symptoms other than stated above Total of at least 10 systems reviewed, pertinent positives as above and in HPI. Results & Data Medications Administered Sodium Chloride (Nss 1000ml) 1,000 mls @ 125 mls/hr IV .Q8H [facility] Stop: 08/02/19 02:01 Last Admin: 07/03/19 10:07 Dose: 125 mls/hr Documented by: [id number] Infusion: 07/03/19 10:07 Dose: 125 mls/hr Documented by: [id number] Admin: 07/03/19 02:38 Dose: 125 mls/hr Documented by: [id number] Heparin Sodium/Dextrose (Heparin Sodium/Dextrose) 25,000 units in 500 mls @ 22 mls/hr IV .[id number] [facility]; Protocol Stop: 08/02/19 02:01 Last Titration: 07/03/19 10:06 Dose: 1,100 units/hr, 22 mls/hr Documented by: [id number] Cosigned by: [id number] Titration: 07/03/19 07:15 Dose: 1,250 units/hr, 25 mls/hr Documented by: [id number] Cosigned by: [id number] Admin: 07/03/19 02:41 Dose: 1,250 units/hr, 25 mls/hr Documented by: [id number] Cosigned by: [id number] Metoprolol Tartrate (Lopressor) 12.5 mg PO BID [facility] Stop: 08/02/19 09:59 Last Admin: 07/03/19 10:22 Dose: 12.5 mg Documented by: [id number] Multivitamins/Minerals (Multivitamin W/ Minerals Tab) [facility] Stop: 08/02/19 08:59 Last Admin: 07/03/19 09:30 Dose: 1 tab Documented by: [id number] Ondansetron HCl (Zofran) 4 mg IV Q6H PRN PRN Reason: Nausea Stop: 08/02/19 02:01 Last Admin: 07/03/19 02:50 Dose: 4 mg Documented by: [id number] Pantoprazole Sodium (Protonix) 40 mg PO [facility] Stop: 07/06/19 09:01 Last Admin: 07/03/19 12:36 Dose: 40 mg Documented by: [id number] Thiamine HCl (Vitamin B-1) 100 mg PO [facility] Stop: 08/02/19 08:59 Last Admin: 07/03/19 09:30 Dose: 100 mg Documented by: [id number] Coding Level of Care Code 33728 [facility] Intl Hosp Care Lvl 3
[2019-07-03 16:42] LABS: Partial Thromboplastin Ratio 4.2
[2019-07-03 16:47] LABS: Partial Thromboplastin Time 114.2 Seconds (21.0-31.0)
[2019-07-03] MEDS: cefTRIAXone SODIUM 2,000 MG in DEXTROSE 5% 50 ML IV SCH (20:54)
[2019-07-03] MEDS ORDERED: LORazepam 1.5 MG/3 ML VIAL IV STA (23:17)
[2019-07-04] MEDS ORDERED: LORazepam 2 MG/4 ML VIAL IV PRN ×2 (00:03→17:54)
[2019-07-04 01:04] LABS: Amphetamines+Metham, Urine Neg (Neg); Barbiturates, Urine Neg (Neg); Benzodiazepine, Urine Neg (Neg); Cocaine, Urine Neg (Neg); MDMA (Ecstacy), Urine Neg (Neg); Methadone, Urine Neg (Neg); Opiate, Urine Neg (Neg); Phencyclidine, Urine Neg (Neg)
--- NOTE | 2019-07-04 06:17 | CT Scan Report ---
CT head/brain wo con CT DOSE: 844.62 mGy.cm HISTORY: AMS TECHNIQUE: Multiaxial CT images of the head were performed without the use of intravenous contrast. A dose lowering technique was utilized adhering to the principles of ALARA. Comparison: 07/02/2019 Findings: The paranasal sinuses and mastoid air cells are clear. The calvarium and skull base are int act. The ventricles and sulci are within normal limits. There is no mass, hematoma, midline shift, or acute infarct. Impression: No acute intracranial abnormality. The above report was generated using voice recognition software. It may contain grammatical, syntax or spelling errors. Electronically signed by: Willam Marin M.D. 07/04/2019 6:16 AM
[2019-07-04 07:10] LABS: Basophils # (auto) 0.05 K/uL (0-0.2); Eosinophils # (auto) 0.05 K/uL (0-0.5); Hematocrit (blood only) 39.7 % (37-47); Hemoglobin 13.5 g/dL (12.0-16.0); Immature Granulocytes # (auto) 0.01 K/uL (0.00-0.02); Immature Granulocytes % (auto) 0.2 %; Lymphocytes # (auto) 1.77 K/uL (1.2-3.4); Lymphocytes % (auto) 35.8 %; Mean Corpuscular Hemoglobin 34.1 pg (25-34); Mean Corpuscular Volume 100.3 fL (80-100); Mean Platelet Volume 10.7 fL (7.4-10.4); Monocytes # (auto) 0.87 K/uL (0.11-0.59); Monocytes % (auto) 17.6 %; Neutrophils # (auto) 2.19 K/uL (1.4-6.5); Neutrophils % (auto) 44.4 %; Platelet Count 139 K/uL (130-400); RDW Coefficient of Variation 13.2 % (11.5-14.5); RDW Standard Deviation 48.7 fL (36.4-46.3); Red Blood Count 3.96 M/uL (4.2-5.4); White Blood Count 4.94 K/uL (4.8-10.8)
[2019-07-04 07:21] LABS: INR 1.1 (0.9-1.1); Prothrombin Time 11.4 Seconds (9.0-12.0)
[2019-07-04 07:27] LABS: Albumin Level 3.8 gm/dl (3.4-5.0); BUN Creatinine Ratio 10.6 (10-20); Calcium 8.8 mg/dl (8.5-10.1); Creatinine Clr Calc Pharmacy 91.6 ml/min; Est GFR (African American) 99.9; Est GFR (Non-African American) 86.2; Potassium 3.1 mmol/L (3.5-5.1)
[2019-07-04 07:30] LABS: Albumin Globulin Ratio 1.1 (0.9-2); Bilirubin,Total 3.1 mg/dl (0.2-1); Globulin 3.6 gm/dl (2.5-4.0); Total Protein 7.4 gm/dl (6.4-8.2)
[2019-07-04] MEDS: METOPROLOL TARTRATE 25 MG TAB PO SCH (10:20)
[2019-07-04] MEDS: CEROVITE ADV FORMULA TAB PO SCH (10:20)
[2019-07-04] MEDS: FOLIC ACID 1 MG TAB PO SCH (10:21)
[2019-07-04] MEDS: POTASSIUM CHLORIDE / WTR 10 MEQ/100 ML PLCT IV SCH ×2 (10:21→11:51)
[2019-07-04] MEDS: THIAMINE HCL 100 MG TAB PO SCH (10:21)
[2019-07-04] MEDS: PANTOprazole 40 MG TAB PO SCH (10:21)
[2019-07-04] MEDS: NSS + 20MEQ KCL 20 MEQ/1,000 ML BAG IV SCH (10:21)
[2019-07-04] MEDS ORDERED: GABAPENTIN 600MG ALCOHOL WITHDRAWAL LOAD PO SCH (11:00)
[2019-07-04] MEDS ORDERED: GABAPENTIN 600 MG TAB PO ONE (11:00)
--- NOTE | 2019-07-04 12:13 | Cardiology Progress Note ---
Date of Service July 04, 2019 Assessment & Plan (1) Atrial fibrillation with RVR: Patient had transient episode of atrial fibrillation with onset on 07/02/2019, 2336 hrs., on 07/03/2019 at 3:56 AM she spontaneously converted back to sinus rhythm. No recurrence. She is off anticoagulation. She is tolerating low-dose metoprolol 2.5 mg twice daily. This may have occurred in the setting of alcohol withdrawal. Her risk of cardioembolic stroke is low with [id number] score of 1 for female sex. I think it is reasonable to observe her without anticoagulation. The most recent guidelines suggest that the prophylactic benefit in terms of stroke prophylaxis in the setting of paroxysmal atrial fibrillation is negligible. Therefore she is not on aspirin. (2) Hypokalemia: Electrolyte replacement has already been ordered by the primary team. (3) Elevated LFTs: Still with significant transaminase elevation. Check fasting lipid panel tomorrow morning labs. Subjective Chief complaint: Follow-up atrial fibrillation Subjective: Patient sitting in her bedside chair with family member. She is feeling well without complaints at present. Potassium replacement is infusing intravenously. Review of Systems Review of Systems: All systems reviewed & are unremarkable except as noted in HPI & below Physical Exam Physical Exam: Temp Pulse Resp BP Pulse Ox 36.3 C L 80 18 140/93 94 07/04/19 11:50 07/04/19 11:50 07/04/19 11:50 07/04/19 11:50 07/04/19 11:50 Constitutional: WD/WN, vitals as above Respiratory: normal respiratory effort, lungs clear to auscultation Cardiovascular: RRR, no murmur, no edema Skin: no rashes, warm and dry Neurologic: PERRL, EOMI, accommodation nl, no face palsy, no dysarthria Results & Data Vital Signs (Past 12 Hours) Vital Signs Temp Pulse Resp BP Pulse Ox 07/04/19 11:50 36.3 C L 80 18 140/93 94 07/04/19 07:49 36.3 C L 96 H 20 159/85 H 94
--- NOTE | 2019-07-04 13:14 | Hospitalist Progress Note ---
Date of Service July 04, 2019 Assessment & Plan (1) Atrial fibrillation with RVR: 54 yr old F presented to ED 07/02/19 2/2 N/V, ill feeling along with auditory hallucinations. Pt found to be in Afib with RVR received Cardizem bolus and drip in ED Started on IV heparin Converted to normal sinus rhythm at 0354am with intermittent sinus tach Remains in sinus rhythm with controlled rate Heparin has been discontinued Continue beta-neil for now echocardiogram reviewed and WNL cardiology consulted - appreciate their input metoprolol initiated monitor electrolytes and replete as needed ( Keep K > 4, Mag > 2.0) TSH WNL drug tox screen negative lyme screen/anaplasma screen pending (2) Elevated LFTs: Upon admission AST 519, ALT 596, total bili 3.1, alk phos 129 CT scan abd/pelvis: Diffusely heterogeneous appearance of the liver with minimal marginal nodularity. Correlate clinically to exclude early cirrhotic liver disease. Abd U/S: Several small gallbladder polyps. Normal caliber bile ducts DAMON, Hepatitis panel, EBV, CMV pending Lyme titer is negative GI consulted: Appreciate their recommendations Start PPI daily Concern for cirrhosis with MELD 14 Liver functions remains elevated and stable (3) Hypokalemia: pt given 60meq KCL x 1 along with IV supplemenation repeat K at 12:00pm replete as needed (4) Alcohol abuse: pt reports 2-3 ETOH drinks 3-4x/week with heavy ETOH use in college AWSS protocol prn lorazepam psych consulted ETOH negative on admission Has symptoms of alcohol withdrawal Will put her on gabapentin withdrawal protocol (5) Auditory hallucination: ? if 2/2 to ETOH abuse/withdrawl vs underlying psych process psych consulted-appreciate input and recommendation Auditory hallucination is persisting No evidence of any infection as of the Urine and bladder cultures have been negative so far (6) DVT prophylaxis: IV heparin Disposition: admitted to PCU; discharge to home when medically stable Follow up: PCP Juhi Lundy Waiting for her to come and discuss further management from here Subjective 07/03 The patient was seen and examined in telemetry unit She was admitted with the abdominal discomfort/pain associated with nausea and vomiting and noted to have very high LFTs and later on atrial fibrillation He complains to have auditory hallucination and tremors of the hands Denies any chest pain and/or palpitation Abdominal discomfort and nausea, vomiting have been improving 07/04 She has had an attack last night when she wanted to get out of the hospital and signed out AMA She was hallucinating and the condition resolved after administering 2 mg of intravenous Ativan and the presence of the This morning she is still hallucinating but does not have any aggressive behavior Does not have any complaints except hallucination and minimal tremor with outstretched hands Review of Systems Review of Systems: All systems reviewed and are unremarkable except as noted below Psychiatric: + irritability, + anxiety and + auditory hallucinations Physical Exam Physical Exam: Sitting on a chair without any acute symptoms Constitutional: well developed, well nourished and + altered mental status; no acute distress Eyes: PERRL, conjunctivae normal, anicteric sclerae ENMT: external ear and nose normal, oropharynx normal Neck: trachea midline, no thyromegaly trachea midline Respiratory: normal respiratory effort and + respiratory distress Auscultation: lungs clear to auscultation bilaterally Cardiovascular: Rate/Rhythm: regular rate and regular rhythm Heart Sounds: no murmur Gastrointestinal (Abdomen): Inspection/Auscultation: normal bowel sounds Percussion/Palpation: + abdomen tender (generalized pain w/ palpation) and abdomen soft; no guarding and abdomen not rigid Musculoskeletal: No acute arthritis in any of the joints Skin: no rashes, warm and dry Neurologic: PERRL, EOMI, accommodation nl, no face palsy, no dysarthria moves all extremities; no focal motor deficits Psychiatric: Orientation: alert and cooperative ( and pleasant) Apperance: appropriately dressed, appropriately groomed and appeared stated age Eye Contact: good eye contact Motor Behavior: no abnormal motor movements (observed while laying in bed) Affect: + anxious affect and mood congruent with affect Mood: + anxious mood ("Just a lot of situations that have been stressful") Thought Process: goal directed thought process, clear/coherent thought process and thought association intact Thought Content: reality based without delusions; no hopelessness and no worthlessness Suicidal Thoughts: denies suicidal thoughts and denies suicidal intent Homicidal Thoughts: denies homicidal thoughts Hallucinations: + auditory hallucinations (episodic - hearing foot steps and radio music) and + visual hallucinations (began as "white orbs"; now seeing "little people" in the face of the clock) Cognition: recent memory grossly intact, remote memory grossly intact, attention grossly intact and language grossly intact Insight: good insight Judgement: + limited judgement Results & Data Vital Signs (Past 12 Hours) Vital Signs Temp Pulse Resp BP Pulse Ox 07/04/19 11:50 36.3 C L 80 18 140/93 94 07/04/19 07:49 36.3 C L 96 H 20 159/85 H 94 Laboratory Results Short CBC 07/04/19 Range/Units 06:56 WBC 4.94 (4.8-10.8) K/uL Hgb 13.5 (12.0-16.0) g/dL Hct 39.7 (37-47) % Plt Count 139 (130-400) K/uL BMP 07/04/19 06:56 Sodium 138 Potassium 3.1 L Chloride 107 Carbon Dioxide 22 BUN 8 Creatinine 0.78 Glucose 131 H Calcium 8.8 Cardiac Enzymes 07/03/19 Range/Units 18:02 Troponin I < 0.015 (0-0.045) ng/ml Liver Function 07/04/19 Range/Units 06:56 Total Bilirubin 3.1 H (0.2-1) mg/dl AST 526 H (15-37) U/L ALT 577 H (12-78) U/L Alkaline Phosphatase 140 H (45-117) U/L Albumin 3.8 (3.4-5.0) gm/dl Medications Administered Current Inpatient Medications Folic Acid (Folvite) 1 mg PO QAM [facility] Stop: 08/03/19 08:59 Last Admin: 07/04/19 10:21 Dose: 1 mg Documented by: Gabapentin (Neurontin) 100 mg PO Q6H [facility] Stop: 07/04/19 23:01 Gabapentin (Neurontin) 200 mg PO Q24H [facility] Stop: 07/07/19 11:01 Gabapentin (Neurontin) 400 mg PO Q24H [facility] Stop: 07/06/19 11:01 Gabapentin (Neurontin) 600 mg PO Q24H [facility] Stop: 07/05/19 11:01 Sodium Chloride (Nss 1000ml) 1,000 mls @ 125 mls/hr IV .Q8H [facility] Stop: 08/02/19 02:01 Last Infusion: 07/04/19 12:00 Dose: Infused Documented by: Heparin Sodium/Dextrose (Heparin Sodium/Dextrose) 25,000 units in 500 mls @ 0 mls/hr IV .Q0M [facility]; Protocol Stop: 08/02/19 02:01 Last Titration: 07/04/19 12:00 Dose: Infused Documented by: Ceftriaxone Sodium 2,000 mg/ (Dextrose) 70 mls @ 100 mls/hr IV Q24H [facility]; Protocol Stop: 07/07/19 20:59 Last Infusion: 07/03/19 21:36 Dose: Infused Documented by: Potassium Chloride/Sodium Chloride (Normal Saline W/20 Meq Kcl) 20 meq in 1,000 mls @ 75 mls/hr IV .[id number] [facility] Stop: 08/03/19 08:44 Last Infusion: 07/04/19 12:54 Dose: 75 mls/hr Documented by: Lorazepam (Ativan) 1 mg in 2 mls @ 4 mls/min IV Q2H PRN PRN Reason: Anxiety/Agitation Stop: 08/03/19 10:51 Metoprolol Tartrate (Lopressor) 12.5 mg PO BID [facility] Stop: 08/02/19 09:59 Last Admin: 07/04/19 10:20 Dose: 12.5 mg Documented by: Miscellaneous Information () 1 ea N/A UD PRN PRN Reason: Consult Stop: 08/02/19 11:08 Multivitamins/Minerals (Multivitamin W/ Minerals Tab) 1 tab PO [facility] Stop: 08/02/19 08:59 Last Admin: 07/04/19 10:20 Dose: 1 tab Documented by: Nitroglycerin (Nitrostat) 0.4 mg SL UD PRN PRN Reason: Chest Pain Stop: 08/02/19 02:01 Ondansetron HCl (Zofran) 4 mg IV Q6H PRN PRN Reason: Nausea Stop: 08/02/19 02:01 Last Admin: 07/03/19 02:50 Dose: 4 mg Documented by: Pantoprazole Sodium (Protonix) 40 mg PO [facility] Stop: 07/06/19 09:01 Last Admin: 07/04/19 10:21 Dose: 40 mg Documented by: Thiamine HCl (Vitamin B-1) 100 mg PO [facility] Stop: 08/02/19 08:59 Last Admin: 07/04/19 10:21 Dose: 100 mg Documented by:
[2019-07-04] MEDS: LORazepam 1 MG/2 ML VIAL IV PRN ×2 (15:00→16:29)
[2019-07-04] MEDS: GABAPENTIN 100 MG CAP PO SCH (16:29)
[2019-07-04] MEDS ORDERED: LORazepam 2 MG/4 ML VIAL ONE (17:58)
--- NOTE | 2019-07-04 18:12 | Psychiatric Progress Note ---
Date of Service July 04, 2019 Impression / Recommendations Impression Carried forward from 07/03/19 consult: 54-year-old female admitted medically on 07/02/19 after presenting to the ED with intractable nausea and vomiting. Pt admits to increased anxiety recently related to ongoing work stress as well as the recent suicide of a family friend. She also reports experiencing nausea, vomiting, and general malaise believed to be due to influenza. Pt does admit that she has not slept in about 4 nights. This, in combination with increased stress and UTI may contributing to the visual and auditory hallucinations the patient has been reporting episodically. Given that the patient has no prior psychiatric history, these hallucinations may be hypnagogic/hypnopompic in nature, and exacerbated by sleep deprivation. 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 It may be worth obtaining and when available getting a slit lamp evaluation for [facility] Heidi RIngs, appreciate that GI is evaluating for other causes of elevated LFTs which could be causing hepatic encephalopathy on top of alcohol withdrawal delirium. PLAN: 07/03 - Continue metoprolol per cardiology recommendations; may provide some benefit for anxiety as well - Hydroxyzine 25mg PO q4h prn acute anxiety; 50mg qHS prn insomnia may require a repeat dose if initial is ineffective - Heavily encourage sleep - utilize lorazepam if hydroxyzine is ineffective for this - No indication for inpatient psychiatric admission - Declines offer for referral for therapy or psychiatric medication man agement; not desiring long-term or daily medications 07/04 - continue AWSS with gapabentin to reduce risk of seizure hopefullly will also help anxiety and sleep off label, watch for instabtiliy of gait, and prn ativan only for clear AWSS scoring on protocol to avoid worsening of delirium/encephalopathy - to evaluate for rare but possible Eduard'd disease: please consider ceruloplasmin level OR 24hour urine copper (may be impossible at this time while patient is delirious) and slit lamp exam of the eye when available/possible - if patient becomes agitated please give risperdal 0.5mg po tid prn severe agitation that is not verbally redirectable - psychiatry has written the order - agree with one-to one at bedside, lights on in day, off at night, agree with introductions, and out of bed to chair in daytime to protect sleep wake schedules and provide stimulation in day Risk Factors Assessment Do You Have Access To A Gun?: Yes (only with access) Interval History Chief Complaint "Sure come on in!". Subjective Subjective Patient was seen & assessed at the bedside, first alone, and then her hsuband was interviewed as well for collateral information. Revewied full chart to include nursing, and liasion nursing notes and original consult Patient today continues to have confusion both seeing and hearing things responding to these hallucinations. WHile with her she does pick at the air in front of her, shakes and then touches the table and becomes startled and states "I am so sorry" on further exploration she indirectly references the one-to-one attendent "she is picky about her stuf....of course she is it is her stuff" pointing to the IV pole and her IV in her arm. She actively interacts with what she describes as a male who is giving her answers to which she listens and smiles this is transient. She beleieves the cars seen from her window (football parking traffic for the [employer] football game) is a gathering for her friend's son who completed suicide 2weeks ago. SHe has difficulty saying how she feels becoming tangential and diffuse and at times non-sensical. She is oriented to person, year, month, day of the week, thinks is the 18th, but not to place despite serial reorientation. She is not clear on why she is in the hospital. She states "I feel better now that I did last night" but states she was confused last night, clearer this AM, and worsened confusion as the day has progressed but not agitated as she was last PM. Patinet states her last drink of alcohol was "10 days ago" stating she has 2-3 glasses of wine 3-4 nighst a week, states she drinks 2 SOLO cups of wine every night "slowed down the week prior to the " which was 06/27/19 and had a drink Sat06/27, but not since. He notes she seemed to have shaking Saturday, and then began to have vomitting and seem unwell. Saturday she appeared so poorly that he brought her to the hospital. He states in retrospect he wonders if this indeed is alcohol withdrawal as the team has raised as possibility. He notes her father was an alcoholic, and patient drank heavily prior to their marriage 30 years ago, but for many years has drank this basal level of alcohol isted above, never more than 2-3days without. Both patinet and deny h/o shakes, sweats of seizures or hallucinosis. again confirms no formal behavioral health history but patient has always said "it is me and GOd" so that she does not rely on others so may not have said if she was struggling internally, but no obvious external show of depression, anxiety or dysfunction. NO h/o psychosis or confusion. NO known family history of liver dysfunction or Eduard's disease. Physical Exam Psychiatric Orientation: oriented to person, oriented to time and cooperative not oriented to place sits in chair eyes are bloodshot, she is grossly responding to internal stimuli Eye Contact: good eye contact (at times looks away to interact with a hallucination) she remains seated throughout, she has a gross tremor when resting but can suppress it when she holds her hands out "see it is gone" she has regular rate and rythm, at times pauses mid sentence at times laughs res ponding to internal stimuli, at times yells as if calling to others in the room "this is the [facility] right?" Affect: + labile affect (calm, to socially gregarious, and then somber, no tears) not irritable "good......awful you hear what happened.....that is sillly" loosely connected thoughts and sometimes shyam diconnection, with clear repsonding and interacting to internal stimuli, at other times discussing events in the room as if we are at the school district building visual and auditory hallucinations, confused disjointed wandering disucssion able to answer some questions coherently but not others Suicidal Thoughts: denies suicidal thoughts Homicidal Thoughts: denies homicidal thoughts Hallucinations: + auditory hallucinations, + visual hallucinations and + tactile hallucinations (touching her hand searching for a hair, reaching for the bugs she feels) poor attention, poor memory vocabulary is consistent with education Insight: + severely impaired insight Judgement: + severely impaired judgement Vital Signs (Past 24 Hours) Last Vital Signs Temp 36.9 C 07/04/19 15:05 Pulse 88 07/04/19 15:05 Resp 20 07/04/19 15:05 BP 135/85 07/04/19 15:05 Pulse Ox 93 07/04/19 15:05 Results & Data Laboratory Results Laboratory Results - last 24 hr 07/03/19 07/03/19 07/04/19 05:22 18:02 00:40 WBC RBC Hgb Hct MCV MCH MCHC RDW Std Deviation RDW Coeff of Serg Plt Count MPV Immature Gran % (Auto) Neut % (Auto) Lymph % (Auto) [place] % (Auto) Eos % (Auto) Baso % (Auto) Immature Gran # (Auto) Neut # (Auto) Lymph # (Auto) [place] # (Auto) Eos # (Auto) Baso # (Auto) PT INR Sodium Potassium Chloride Carbon Dioxide Anion Gap BUN Creatinine Est Cr Clr Drug Dosing Est GFR ( Amer) Est GFR (Non-Af Amer) BUN/Creatinine Ratio Glucose Calcium Magnesium Total Bilirubin AST ALT Alkaline Phosphatase Ammonia Troponin I < 0.015 Total Protein Albumin Globulin Albumin/Globulin Ratio Urine Opiates Screen Neg Ur Methadone, Qual Neg Urine Barbiturates Neg Ur Phencyclidine (PCP) Neg U Amphetamin/Meth Scrn Neg MDMA (Ecstasy) Screen Neg U Benzodiazepines Scrn Neg Ur Cocaine Metabolite Neg U Marijuana (THC) Screen Neg CMV IgM Ab CMV IgG Ab/TORCH Miscellaneous Test REPORT 07/04/19 07/04/19 07/04/19 06:56 06:56 06:56 WBC 4.94 RBC 3.96 L Hgb 13.5 Hct 39.7 MCV 100.3 H MCH 34.1 H MCHC 34.0 RDW Std Deviation 48.7 H RDW Coeff of Serg 13.2 Plt Count 139 MPV 10.7 H Immature Gran % (Auto) 0.2 Neut % (Auto) 44.4 Lymph % (Auto) 35.8 [place] % (Auto) 17.6 Eos % (Auto) 1.0 Baso % (Auto) 1.0 Immature Gran # (Auto) 0.01 Neut # (Auto) 2.19 Lymph # (Auto) 1.77 [place] # (Auto) 0.87 H Eos # (Auto) 0.05 Baso # (Auto) 0.05 PT 11.4 INR 1.1 Sodium 138 Potassium 3.1 L Chloride 107 Carbon Dioxide 22 Anion Gap 9.0 BUN 8 Creatinine 0.78 Est Cr Clr Drug Dosing 91.6 Est GFR ( Amer) 99.9 Est GFR (Non-Af Amer) 86.2 BUN/Creatinine Ratio 10.6 Glucose 131 H Calcium 8.8 Magnesium 2.0 Total Bilirubin 3.1 H AST 526 H ALT 577 H Alkaline Phosphatase 140 H Ammonia Troponin I Total Protein 7.4 Albumin 3.8 Globulin 3.6 Albumin/Globulin Ratio 1.1 Urine Opiates Screen Ur Methadone, Qual Urine Barbiturates Ur Phencyclidine (PCP) U Amphetamin/Meth Scrn MDMA (Ecstasy) Screen U Benzodiazepines Scrn Ur Cocaine Metabolite U Marijuana (THC) Screen CMV IgM Ab CMV IgG Ab/TORCH Miscellaneous Test 07/04/19 07/04/19 06:56 06:56 WBC RBC Hgb Hct MCV MCH MCHC RDW Std Deviation RDW Coeff of Serg Plt Count MPV Immature Gran % (Auto) Neut % (Auto) Lymph % (Auto) [place] % (Auto) Eos % (Auto) Baso % (Auto) Immature Gran # (Auto) Neut # (Auto) Lymph # (Auto) [place] # (Auto) Eos # (Auto) Baso # (Auto) PT INR Sodium Potassium Chloride Carbon Dioxide Anion Gap BUN Creatinine Est Cr Clr Drug Dosing Est GFR ( Amer) Est GFR (Non-Af Amer) BUN/Creatinine Ratio Glucose Calcium Magnesium Total Bilirubin AST ALT Alkaline Phosphatase Ammonia 14.0 Troponin I Total Protein Albumin Globulin Albumin/Globulin Ratio Urine Opiates Screen Ur Methadone, Qual Urine Barbiturates Ur Phencyclidine (PCP) U Amphetamin/Meth Scrn MDMA (Ecstasy) Screen U Benzodiazepines Scrn Ur Cocaine Metabolite U Marijuana (THC) Screen CMV IgM Ab Pending CMV IgG Ab/TORCH Pending Miscellaneous Test Current Inpatient Medications Current Inpatient Medications: Current Inpatient Medications Folic Acid (Folvite) 1 mg PO QAM [facility] Stop: 08/03/19 08:59 Last Admin: 07/04/19 10:21 Dose: 1 mg Documented by: Gabapentin (Neurontin) 100 mg PO Q6H [facility] Stop: 07/04/19 23:01 Last Admin: 07/04/19 16:29 Dose: 100 mg Documented by: Gabapentin (Neurontin) 200 mg PO Q24H [facility] Stop: 07/07/19 11:01 Gabapentin (Neurontin) 400 mg PO Q24H [facility] Stop: 07/06/19 11:01 Gabapentin (Neurontin) 600 mg PO Q24H [facility] Stop: 07/05/19 11:01 Sodium Chloride (Nss 1000ml) 1,000 mls @ 125 mls/hr IV .Q8H [facility] Stop: 08/02/19 02:01 Last Infusion: 07/04/19 12:00 Dose: Infused Documented by: Heparin Sodium/Dextrose (Heparin Sodium/Dextrose) 25,000 units in 500 mls @ 0 mls/hr IV .Q0M [facility]; Protocol Stop: 08/02/19 02:01 Last Titration: 07/04/19 12:00 Dose: Infused Documented by: Ceftriaxone Sodium 2,000 mg/ (Dextrose) 70 mls @ 100 mls/hr IV Q24H [facility]; Protocol Stop: 07/07/19 20:59 Last Infusion: 07/03/19 21:36 Dose: Infused Documented by: Potassium Chloride/Sodium Chloride (Normal Saline W/20 Meq Kcl) 20 meq in 1,000 mls @ 75 mls/hr IV .[id number] [facility] Stop: 08/03/19 08:44 Last Infusion: 07/04/19 12:54 Dose: 75 mls/hr Documented by: Lorazepam (Ativan) 1 mg in 2 mls @ 4 mls/min IV Q2H PRN PRN Reason: Anxiety/Agitation Stop: 08/03/19 10:51 Last Admin: 07/04/19 16:29 Dose: 4 mls/min Documented by: Metoprolol Tartrate (Lopressor) 12.5 mg PO BID [facility] Stop: 08/02/19 09:59 Last Admin: 07/04/19 10:20 Dose: 12.5 mg Documented by: Miscellaneous Information () 1 ea N/A UD PRN PRN Reason: Consult Stop: 08/02/19 11:08 Multivitamins/Minerals (Multivitamin W/ Minerals Tab) 1 tab PO QAM [facility] Stop: 08/02/19 08:59 Last Admin: 07/04/19 10:20 Dose: 1 tab Documented by: Nitroglycerin (Nitrostat) 0.4 mg SL UD PRN PRN Reason: Chest Pain Stop: 08/02/19 02:01 Ondansetron HCl (Zofran) 4 mg IV Q6H PRN PRN Reason: Nausea Stop: 08/02/19 02:01 Last Admin: 07/03/19 02:50 Dose: 4 mg Documented by: Pantoprazole Sodium (Protonix) 40 mg PO [facility] Stop: 07/06/19 09:01 Last Admin: 07/04/19 10:21 Dose: 40 mg Documented by: Thiamine HCl (Vitamin B-1) 100 mg PO [facility] Stop: 08/02/19 08:59 Last Admin: 07/04/19 10:21 Dose: 100 mg Documented by: CPT Code CPT Code 83373 (> 90min spent reveiwing chart, collecting collateral, researching etiology and writing note)
[2019-07-04] MEDS: cefTRIAXone SODIUM 2,000 MG in DEXTROSE 5% 50 ML IV SCH (22:10)
[2019-07-05] MEDS: GABAPENTIN 100 MG CAP PO SCH (00:20)
[2019-07-05] MEDS: METOPROLOL TARTRATE 25 MG TAB PO SCH ×3 (00:20→20:05)
[2019-07-05] MEDS ORDERED: COUGH DROP (SUGAR FREE) LOZ 24 LOZ/1 BOX BUCCAL PRN (00:31)
[2019-07-05] MEDS: NSS + 20MEQ KCL 20 MEQ/1,000 ML BAG IV SCH ×2 (01:53→14:28)
[2019-07-05 07:23] LABS: INR 1.2 (0.9-1.1); Prothrombin Time 11.9 Seconds (9.0-12.0)
[2019-07-05 07:51] LABS: Albumin Level 3.1 gm/dl (3.4-5.0); BUN Creatinine Ratio 10.3 (10-20); Calcium 8.5 mg/dl (8.5-10.1); Est GFR (African American) 116.7; Est GFR (Non-African American) 100.7; Potassium 3.6 mmol/L (3.5-5.1)
[2019-07-05 07:53] LABS: Albumin Globulin Ratio 0.9 (0.9-2); Bilirubin,Total 2.4 mg/dl (0.2-1); Globulin 3.4 gm/dl (2.5-4.0); Total Protein 6.5 gm/dl (6.4-8.2)
[2019-07-05] MEDS: PANTOprazole 40 MG TAB PO SCH (09:07)
[2019-07-05] MEDS: risperiDONE ODT 0.5 MG SOLTAB PO PRN ×2 (09:14→20:05)
[2019-07-05] MEDS: CEROVITE ADV FORMULA TAB PO SCH (09:15)
[2019-07-05] MEDS: FOLIC ACID 1 MG TAB PO SCH (09:16)
[2019-07-05] MEDS: THIAMINE HCL 100 MG TAB PO SCH (09:16)
[2019-07-05] MEDS ORDERED: GABAPENTIN 600 MG TAB PO SCH (11:00)
--- NOTE | 2019-07-05 12:21 | Hospitalist Progress Note ---
Date of Service July 05, 2019 Assessment & Plan (1) Atrial fibrillation with RVR: 54 yr old F presented to ED 07/02/19 2/2 N/V, ill feeling along with auditory hallucinations. Pt found to be in Afib with RVR received Cardizem bolus and drip in ED Started on IV heparin Converted to normal sinus rhythm [place] 0354am with intermittent sinus tach Remains in sinus rhythm with controlled rate Heparin has been discontinued Continue beta-neil for now Echocardiogram reviewed and WNL cardiology consulted - appreciate their input metoprolol initiated monitor electrolytes and replete as needed ( Keep K > 4, Mag > 2.0) TSH WNL drug tox screen negative lyme screen/anaplasma screen pending (2) Elevated LFTs: Upon admission AST 519, ALT 596, total bili 3.1, alk phos 129 CT scan abd/pelvis: Diffusely heterogeneous appearance of the liver with minimal marginal nodularity. Correlate clinically to exclude early cirrhotic liver disease. Abd U/S: Several small gallbladder polyps. Normal caliber bile ducts DAMON, Hepatitis panel, EBV, CMV pending Lyme titer is negative GI consulted: Appreciate their recommendations Start PPI daily Concern for cirrhosis with MELD 14 Liver functions have been improving (3) Hypokalemia: pt given 60meq KCL x 1 along with IV supplemenation repeat K at 12:00pm replete as needed (4) Alcohol abuse: pt reports 2-3 ETOH drinks 3-4x/week with heavy ETOH use in college AWSS protocol prn lorazepam psych consulted ETOH negative on admission Has symptoms of alcohol withdrawal Will put her on gabapentin withdrawal protocol No significant withdrawal symptoms We will decrease the dose of Ativan to 1 mg (5) Auditory hallucination: ? if 2/2 to ETOH abuse/withdrawl vs underlying psych process psych consulted-appreciate input and recommendation Auditory hallucination is improving We will get serum ceruloplasmin level No evidence of any infection as of the Urine and bladder cultures have been negative so far Antibiotics have been discontinued (6) DVT prophylaxis: IV heparin Disposition: admitted to PCU; discharge to home when medically stable Follow up: PCP Juhi Lundy Waiting for her to come and discuss further management from here Subjective 07/03 The patient was seen and examined in telemetry unit She was admitted with the abdominal discomfort/pain associated with nausea and vomiting and noted to have very high LFTs and later on atrial fibrillation He complains to have auditory hallucination and tremors of the hands Denies any chest pain and/or palpitation Abdominal discomfort and nausea, vomiting have been improving 07/04 She has had an attack last night when she wanted to get out of the hospital and signed out AMA She was hallucinating and the condition resolved after administering 2 mg of intravenous Ativan and the presence of the This morning she is still hallucinating but does not have any aggressive behavior Does not have any complaints except hallucination and minimal tremor with outstretched hands 07/05 The patient was seen and examined in telemetry unit She has been feeling a lot better Her auditory hallucinations have been improving Denies any significant tremor Confusion has been improving to Review of Systems Review of Systems: All systems reviewed and are unremarkable except as noted below Psychiatric: + irritability, + anxiety and + auditory hallucinations Physical Exam Physical Exam: Lying in bed very anxious but without any acute distress Constitutional: well developed, well nourished and + altered mental status; no acute distress Eyes: PERRL, conjunctivae normal, anicteric sclerae ENMT: external ear and nose normal, oropharynx normal Neck: trachea midline, no thyromegaly trachea midline Respiratory: normal respiratory effort and + respiratory distress Auscultation: lungs clear to auscultation bilaterally Cardiovascular: Rate/Rhythm: regular rate and regular rhythm Heart Sounds: no murmur Gastrointestinal (Abdomen): Inspection/Auscultation: normal bowel sounds Percussion/Palpation: + abdomen tender (generalized pain w/ palpation) and abdomen soft; no guarding and abdomen not rigid Musculoskeletal: No acute arthritis in any joint Skin: no rashes, warm and dry Neurologic: PERRL, EOMI, accommodation nl, no face palsy, no dysarthria moves all extremities; no focal motor deficits Motor/Sensory: + tremor (Minimal tremor involving the out distressed hands) Psychiatric: Orientation: alert and cooperative ( and pleasant) Apperance: appropriately dressed, appropriately groomed and appeared stated age Eye Contact: good eye contact Motor Behavior: no abnormal motor movements (observed while laying in bed) Affect: + anxious affect and mood congruent with affect Mood: + anxious mood ("Just a lot of situations that have been stressful") Thought Process: goal directed thought process, clear/coherent thought process and thought association intact Thought Content: reality based without delusions; no hopelessness and no worthlessness Suicidal Thoughts: denies suicidal thoughts and denies suicidal intent Homicidal Thoughts: denies homicidal thoughts Hallucinations: + auditory hallucinations (episodic - hearing foot steps and radio music) and + visual hallucinations (began as "white orbs"; now seeing "little people" in the face of the clock) Cognition: recent memory grossly intact, remote memory grossly intact, attention grossly intact and language grossly intact Insight: good insight Judgement: + limited judgement Results & Data Vital Signs (Past 12 Hours) Vital Signs Temp Pulse Resp BP BP Pulse Ox 07/05/19 10:36 36.7 C 90 18 134/83 93 07/05/19 07:08 36.6 C 79 19 134/77 95 07/05/19 04:56 36.5 C 79 16 147/90 H 95 07/05/19 00:30 36.9 C 89 18 144/85 H 94 Laboratory Results [facility] 07/05/19 06:45 Sodium 140 Potassium 3.6 D Chloride 109 H Carbon Dioxide 25 BUN 7 Creatinine 0.65 Glucose 88 Calcium 8.5 Liver Function 07/05/19 Range/Units 06:45 Total Bilirubin 2.4 H (0.2-1) mg/dl AST 359 H (15-37) U/L ALT 437 H (12-78) U/L Alkaline Phosphatase 122 H (45-117) U/L Albumin 3.1 L (3.4-5.0) gm/dl Medications Administered Current Inpatient Medications Folic Acid (Folvite) 1 mg PO QAM [facility] Stop: 08/03/19 08:59 Last Admin: 07/05/19 09:16 Dose: 1 mg Documented by: Gabapentin (Neurontin) 200 mg PO Q24H [facility] Stop: 07/07/19 11:01 Gabapentin (Neurontin) 400 mg PO Q24H [facility] Stop: 07/06/19 11:01 Sodium Chloride (Nss 1000ml) 1,000 mls @ 125 mls/hr IV .Q8H [facility] Stop: 08/02/19 02:01 Last Infusion: 07/04/19 12:00 Dose: Infused Documented by: Heparin Sodium/Dextrose (Heparin Sodium/Dextrose) 25,000 units in 500 mls @ 0 mls/hr IV .Q0M [facility]; Protocol Stop: 08/02/19 02:01 Last Titration: 07/04/19 12:00 Dose: Infused Documented by: Ceftriaxone Sodium 2,000 mg/ (Dextrose) 70 mls @ 100 mls/hr IV Q24H [facility]; Pr otocol Stop: 07/07/19 20:59 Last Infusion: 07/04/19 22:51 Dose: Infused Documented by: Potassium Chloride/Sodium Chloride (Normal Saline W/20 Meq Kcl) 20 meq in 1,000 mls @ 75 mls/hr IV .[id number] REPLACED BY [facility] Stop: 08/03/19 08:44 Last Admin: 07/05/19 01:53 Dose: 75 mls/hr Documented by: Lorazepam (Ativan) 2 mg in 4 mls @ 4 mls/min IV Q4H PRN PRN Reason: Anxiety Stop: 08/03/19 17:53 Menthol (Nice) 1 bandar BUCCAL PRN PRN PRN Reason: Cough Stop: 08/04/19 00:30 Metoprolol Tartrate (Lopressor) 12.5 mg PO BID [facility] Stop: 08/02/19 09:59 Last Admin: 07/05/19 09:14 Dose: 12.5 mg Documented by: Miscellaneous Information () 1 ea N/A UD PRN PRN Reason: Consult Stop: 08/02/19 11:08 Multivitamins/Minerals (Multivitamin W/ Minerals Tab) 1 tab [facility] Stop: 08/02/19 08:59 Last Admin: 07/05/19 09:15 Dose: 1 tab Documented by: Nitroglycerin (Nitrostat) 0.4 mg SL UD PRN PRN Reason: Chest Pain Stop: 08/02/19 02:01 Ondansetron HCl (Zofran) 4 mg IV Q6H PRN PRN Reason: Nausea Stop: 08/02/19 02:01 Last Admin: 07/03/19 02:50 Dose: 4 mg Documented by: Pantoprazole Sodium (Protonix) 40 mg PO [facility] Stop: 07/06/19 09:01 Last Admin: 07/05/19 09:07 Dose: Not Given Documented by: Risperidone (Risperdal M) 0.5 mg PO TID PRN PRN Reason: Agitation Stop: 08/03/19 18:11 Last Admin: 07/05/19 09:14 Dose: 0.5 mg Documented by: Thiamine HCl (Vitamin B-1) 100 mg PO [facility] Stop: 08/02/19 08:59 Last Admin: 07/05/19 09:16 Dose: 100 mg Documented by:
[2019-07-05] MEDS ORDERED: LORazepam 1 MG/2 ML VIAL IV PRN (14:33)
[2019-07-06 06:57] LABS: INR 1.1 (0.9-1.1); Prothrombin Time 11.3 Seconds (9.0-12.0)
[2019-07-06 07:17] LABS: Albumin Level 2.9 gm/dl (3.4-5.0); BUN Creatinine Ratio 12.3 (10-20); Calcium 8.1 mg/dl (8.5-10.1); Creatinine Clr Calc Pharmacy 101.8 ml/min; Est GFR (African American) 113.8; Est GFR (Non-African American) 98.2; Potassium 3.5 mmol/L (3.5-5.1)
[2019-07-06 07:20] LABS: Albumin Globulin Ratio 0.9 (0.9-2); Bilirubin,Total 1.7 mg/dl (0.2-1); Globulin 3.2 gm/dl (2.5-4.0); Total Protein 6.1 gm/dl (6.4-8.2)
[2019-07-06] MEDS: CEROVITE ADV FORMULA TAB PO SCH (08:15)
[2019-07-06] MEDS: PANTOprazole 40 MG TAB PO SCH (08:15)
[2019-07-06] MEDS: THIAMINE HCL 100 MG TAB PO SCH (08:16)
[2019-07-06] MEDS: METOPROLOL TARTRATE 25 MG TAB PO SCH (08:16)
[2019-07-06] MEDS: FOLIC ACID 1 MG TAB PO SCH (08:16)
[2019-07-06] MEDS ORDERED: GABAPENTIN 400 MG CAP PO SCH (11:00)
--- NOTE | 2019-07-06 12:07 | Hospitalist Progress Note ---
Date of Service July 06, 2019 Assessment & Plan (1) Atrial fibrillation with RVR: 54 yr old F presented to ED 07/02/19 2/2 N/V, ill feeling along with auditory hallucinations. Pt found to be in Afib with RVR received Cardizem bolus and drip in ED Started on IV heparin Converted to normal sinus rhythm at 0354am with intermittent sinus tach Remains in sinus rhythm with controlled rate Heparin has been discontinued Continue beta-neil for now Heart rate remains in sinus rhythm with controlled rate Echocardiogram reviewed and WNL cardiology consulted - appreciate their input metoprolol initiated monitor electrolytes and replete as needed ( Keep K > 4, Mag > 2.0) TSH WNL drug tox screen negative lyme screen/anaplasma screen pending (2) Elevated LFTs: Upon admission AST 519, ALT 596, total bili 3.1, alk phos 129 CT scan abd/pelvis: Diffusely heterogeneous appearance of the liver with minimal marginal nodularity. Correlate clinically to exclude early cirrhotic liver disease. Abd U/S: Several small gallbladder polyps. Normal caliber bile ducts DAMON, Hepatitis panel, EBV, CMV pending Lyme titer is negative GI consulted: Appreciate their recommendations Start PPI daily Concern for cirrhosis with MELD 14 Liver functions have improved and have been improving (3) Hypokalemia: pt given 60meq KCL x 1 along with IV supplemenation repeat K at 12:00pm replete as needed (4) Alcohol abuse: pt reports 2-3 ETOH drinks 3-4x/week with heavy ETOH use in college AWSS protocol prn lorazepam psych consulted ETOH negative on admission Has symptoms of alcohol withdrawal Will put her on gabapentin withdrawal protocol No significant withdrawal symptoms We will decrease the dose of Ativan to 1 mg Withdrawal symptoms (5) Auditory hallucination: ? if 2/2 to ETOH abuse/withdrawl vs underlying psych process psych consulted-appreciate input and recommendation Auditory hallucination is improving We will get serum ceruloplasmin level No more auditory hallucinations Like to be discharged this afternoon following PT and OT evaluation No evidence of any infection as of the Urine and bladder cultures have been negative so far Antibiotics have been discontinued (6) DVT prophylaxis: IV heparin Disposition: admitted to PCU; discharge to home when medically stable Follow up: PCP Juhi [place] Waiting for her to come and discuss further management from here Subjective 07/03 The patient was seen and examined in telemetry unit She was admitted with the abdominal discomfort/pain associated with nausea and vomiting and noted to have very high LFTs and later on atrial fibrillation He complains to have auditory hallucination and tremors of the hands Denies any chest pain and/or palpitation Abdominal discomfort and nausea, vomiting have been improving 07/04 She has had an attack last night when she wanted to get out of the hospital and signed out AMA She was hallucinating and the condition resolved after administering 2 mg of intravenous Ativan and the presence of the This morning she is still hallucinating but does not have any aggressive behavior Does not have any complaints except hallucination and minimal tremor with outstretched hands 07/05 The patient was seen and examined in telemetry unit She has been feeling a lot better Her auditory hallucinations have been improving Denies any significant tremor Confusion has been improving to 07/06 The patient was seen and examined in telemetry unit She has been feeling a lot better Denies any tremor and/or unsteady gait Denies any more hallucinations She seems to be at her baseline and wants to go home Review of Systems Review of Systems: All systems reviewed and are unremarkable except as noted below Psychiatric: + anxiety; no confusion and no auditory hallucinations Physical Exam Physical Exam: Sitting in a chair without any acute distress Constitutional: well developed and well nourished; no acute distress and not ill appearing Eyes: PERRL, conjunctivae normal, anicteric sclerae ENMT: external ear and nose normal, oropharynx normal Neck: trachea midline, no thyromegaly trachea midline Respiratory: normal respiratory effort and + respiratory distress Auscultation: lungs clear to auscultation bilaterally Cardiovascular: Rate/Rhythm: regular rate and regular rhythm Heart Sounds: no murmur Gastrointestinal (Abdomen): Inspection/Auscultation: normal bowel sounds Percussion/Palpation: + abdomen tender (generalized pain w/ palpation) and abdomen soft; no guarding and abdomen not rigid Musculoskeletal: Denies any acute arthritis in any joints Skin: no rashes, warm and dry Neurologic: PERRL, EOMI, accommodation nl, no face palsy, no dysarthria moves all extremities; no focal motor deficits Motor/Sensory: + tremor (Minimal tremor involving the out distressed hands) Psychiatric: Orientation: alert and cooperative ( and pleasant) Apperance: appropriately dressed, appropriately groomed and appeared stated age Eye Contact: good eye contact Motor Behavior: no abnormal motor movements (observed while laying in bed) Affect: + anxious affect and mood congruent with affect Mood: + anxious mood Thought Process: goal directed thought process, clear/coherent thought process and thought association intact Thought Content: reality based without delusions; no hopelessness and no worthlessness Suicidal Thoughts: denies suicidal thoughts and denies suicidal intent Homicidal Thoughts: denies homicidal thoughts Hallucinations: + auditory hallucinations (episodic - hearing foot steps and radio music) and + visual hallucinations (began as "white orbs"; now seeing "little people" in the face of the clock) Cognition: recent memory grossly intact, remote memory grossly intact, attention grossly intact and language grossly intact Insight: good insight Judgement: + limited judgement Results & Data Vital Signs (Past 12 Hours) Vital Signs Temp Pulse Pulse Resp BP Pulse Ox 07/06/19 10:51 36.7 C 86 18 113/77 94 07/06/19 08:00 80 07/06/19 07:10 36.7 C 83 18 130/81 94 07/06/19 03:45 37.1 C 78 18 137/84 95 Laboratory Results [facility] 07/06/19 06:24 Sodium 142 Potassium 3.5 Chloride 108 H Carbon Dioxide 28 BUN 9 Creatinine 0.70 Glucose 84 Calcium 8.1 L Liver Function 07/06/19 Range/Units 06:24 Total Bilirubin 1.7 H (0.2-1) mg/dl AST 283 H (15-37) U/L ALT 362 H (12-78) U/L Alkaline Phosphatase 140 H (45-117) U/L Albumin 2.9 L (3.4-5.0) gm/dl Medications Administered Current Inpatient Medications Folic Acid (Folvite) 1 mg PO QAM DRAKE Stop: 08/03/19 08:59 Last Admin: 07/06/19 08:16 Dose: 1 mg Documented by: Gabapentin (Neurontin) 200 mg PO Q24H DRAKE Stop: 07/07/19 11:01 Lorazepam (Ativan) 1 mg in 2 mls @ 4 mls/min IV Q4H PRN PRN Reason: Anxiety Stop: 08/04/19 14:32 Menthol (Nice) 1 bandar BUCCAL PRN PRN PRN Reason: Cough Stop: 08/04/19 00:30 Metoprolol Tartrate (Lopressor) 12.5 mg PO BID DRAKE Stop: 08/02/19 09:59 Last Admin: 07/06/19 08:16 Dose: 12.5 mg Documented by: Multivitamins/Minerals (Multivitamin W/ Minerals Tab) 1 tab PO [facility] Stop: 08/02/19 08:59 Last Admin: 07/06/19 08:15 Dose: 1 tab Documented by: Nitroglycerin (Nitrostat) 0.4 mg SL UD PRN PRN Reason: Chest Pain Stop: 08/02/19 02:01 Ondansetron HCl (Zofran) 4 mg IV Q6H PRN PRN Reason: Nausea Stop: 08/02/19 02:01 Last Admin: 07/03/19 02:50 Dose: 4 mg Documented by: Risperidone (Risperdal M) 0.5 mg PO TID PRN PRN Reason: Agitation Stop: 08/03/19 18:11 Last Admin: 07/05/19 20:05 Dose: 0.5 mg Documented by: Thiamine HCl (Vitamin B-1) 100 mg PO [facility] Stop: 08/02/19 08:59 Last Admin: 07/06/19 08:16 Dose: 100 mg Documented by:
[2019-07-07 08:09] LABS: Anti Nuclear Antibody Screen NEGATIVE (NEGATIVE); EBV Nuclear Ag Antibody >600.00 U/ML; EBV Virus Capsid Ag IgG Ab >750.00 U/ML; Epstein Barr Virus Early Ag Ab < 9.00 U/ML; Hepatitis A Antibody IgM NON-REACTIVE (NON-REACTIVE); Hepatitis B Core Antibody IgM NON-REACTIVE (NON-REACTIVE)
[2019-07-07] MEDS ORDERED: GABAPENTIN 100 MG CAP PO SCH (11:00)
[2019-07-07 11:31] LABS: CMV IgM Antibody <30.00 Au/mL
--- NOTE | 2019-07-07 13:48 | Discharge Summary ---
Date of Service July 07, 2019 Admission HPI Per Admitting Provider Erin Rhodes is a 54-year-old female admitted medically on 07/02/19 after presenting to the ED with intractable nausea and vomiting, presumed to be related to influenza. Pt was admitted medically after work-up suggested acute atrial fibrillation, UTI, and anxiety. Psychiatric consultation is requested to evaluate patient for severe anxiety, as well as report of hallucinations occurring in the past several days. Pts case is reviewed and discussed with psychiatrist and psychiatric nurse liaison. Pt is cooperative with evaluation and is seen alone initially. Her enters the room part of the way through our encounter, and patient gives verbal permission for him to remain in the room. Pt admits to increased anxiety over the past several years Honestly, its mostly been situational at work, it started with that. Pt states that she has been experiencing increased frustration at work with unequal distribution of work and just passing out more work instead of hiring replacement people. Pt states some days just grinds on you harder than others. Pt states that while she gets along with her co-worker, and has a lot of support from her boss, she also tries to stay out of the drama whenever possible. Pt states, the anxiety has just been growing and growing. And then of course theres our friend, its been so hard. the patient shares of her familys involvement in helping to support a young man who was struggling with depression and recently took his own life. Pt states, we had prayed for him, been there for him, I just feel like we failed. Pt denies any safety concerns for herself, denying SI/HI, SIB, and symptoms of significant depression. Pt reports feeling mentally stuck when developed physical symptoms that she presumed to be due to influenza. Pt states that she eventually began to feel physically sick. While under continued stress, the patient states she attempted to increase her rest while battling the flu. She states that she had laid down to sleep and began hearing footsteps in her bedroom. She turned, expecting to see her , and states that no one was there. At home, she continued to hear things, like people moving things or walking around the house; but no one was there. Pt states that the visual hallucinations had not started until she was in the hospital, and admits even now to seeing little people in the face of the clock on her room. Pt admits that she has never experienced hallucinations before. She does admit that due to persistent vomiting, she has not slept in about 4 days. Pt did admit to consuming about 2-3 glasses of wine a night, at times more when celebrating special events. Pt denies feeling as though her alcohol use has been a concern or has led to significant problems. Pt denies SI, HI, SIB, paranoia, yolanda/hypomania, other symptoms more suggestive of a bipolar presentation, OCD, PTSD, eating disorder, and other specific psychiatric symptoms. Admission Exam Per Admitting Provider GENERAL: The patient is of moderate build, not in acute distress. VITAL SIGNS: Temperature 36.5, pulse 114, blood pressure 180/100 and oxygen 95% on room air. HEENT: No pallor. No icterus. Pupils are equal, round and reactive to light. NECK: No JVD. No neck masses. No carotid bruits. CARDIOVASCULAR: S1, S2 heard. Regular rate and rhythm. No murmur. No gallop. RESPIRATORY SYSTEM: Normal AP diameter. No accessory muscle use. No wheezing. No crackles. ABDOMEN: Soft. Bowel sounds present. Nontender. No distention. CENTRAL NERVOUS SYSTEM: Cranial nerves II through XII are grossly intact. Nonfocal. EXTREMITIES: No edema. No erythema. Principal Diagnosis Atrial fibrillation with RVR-reverted to sinus rhythm, alcohol abuse with withdrawal symptoms, auditory hallucinations-resolved, abnormal liver function test-improving Discharge Exam Constitutional well developed and well nourished; no acute distress and not ill appearing Eyes PERRL, conjunctivae normal, anicteric sclerae ENMT external ear and nose normal, oropharynx normal Neck trachea midline, no thyromegaly trachea midline Respiratory normal respiratory effort and + respiratory distress Auscultation: lungs clear to auscultation bilaterally Cardiovascular Rate/Rhythm: regular rate and regular rhythm Heart Sounds: no murmur Gastrointestinal (Abdomen) Inspection/Auscultation: normal bowel sounds Percussion/Palpation: + abdomen tender (generalized pain w/ palpation) and abdomen soft; no guarding and abdomen not rigid Skin no rashes, warm and dry Neurologic PERRL, EOMI, accommodation nl, no face palsy, no dysarthria moves all extremities; no focal motor deficits Motor/Sensory: + tremor (Minimal tremor involving the out distressed hands) Psychiatric Orientation: alert and cooperative ( and pleasant) Apperance: appropriately dressed, appropriately groomed and appeared stated age Eye Contact: good eye contact Motor Behavior: no abnormal motor movements (observed while laying in bed) Affect: + anxious affect and mood congruent with affect Mood: + anxious mood Thought Process: goal directed thought process, clear/coherent thought process and thought association intact Thought Content: reality based without delusions; no hopelessness and no worthlessness Suicidal Thoughts: denies suicidal thoughts and denies suicidal intent Homicidal Thoughts: denies homicidal thoughts Hallucinations: + auditory hallucinations (episodic - hearing foot steps and radio music) and + visual hallucinations (began as "white orbs"; now seeing "little people" in the face of the clock) Cognition: recent memory grossly intact, remote memory grossly intact, attention grossly intact and language grossly intact Insight: good insight Judgement: + limited judgement Discharge Data Allergies Allergy/AdvReac Type Severity Reaction Status Date / Time Penicillins Allergy Mild Unknown Verified 07/02/19 20:51 Consultations 07/02/19 22:16 ED Decision to Admit Stat 07/03/19 08:00 Consult Gastroenterology Routine 07/03/19 09:46 Consult Psychiatry Routine 07/04/19 08:00 Consult Cardiology Routine 07/06/19 12:07 Consult Case Management - Discharge Planning Routine Ordered Studies 07/02/19 20:58 CT head/brain wo con Stat 07/02/19 21:57 US abdomen limited Stat 07/02/19 22:32 CT abd pelvis IV con only Stat 07/04/19 00:12 CT head/brain wo con Urgent Hospital Course (1) Atrial fibrillation with RVR: 54 yr old F presented to ED 07/02/19 2/2 N/V, ill feeling along with auditory hallucinations. Pt found to be in Afib with RVR received Cardizem bolus and drip in ED Started on IV heparin Converted to normal sinus rhythm at 0354am with intermittent sinus tach Remains in sinus rhythm with controlled rate Heparin has been discontinued Continue beta-neil for now Heart rate remains in sinus rhythm with controlled rate Echocardiogram reviewed and WNL cardiology consulted - appreciate their input metoprolol initiated monitor electrolytes and replete as needed ( Keep K > 4, Mag > 2.0) TSH WNL drug tox screen negative lyme screen/anaplasma screen pending (2) Elevated LFTs: Upon admission AST 519, ALT 596, total bili 3.1, alk phos 129 CT scan abd/pelvis: Diffusely heterogeneous appearance of the liver with minimal marginal nodularity. Correlate clinically to exclude early cirrhotic liver dis ease. Abd U/S: Several small gallbladder polyps. Normal caliber bile ducts DAMON, Hepatitis panel, EBV, CMV pending Lyme titer is negative GI consulted: Appreciate their recommendations Start PPI daily Concern for cirrhosis with MELD 14 Liver functions have improved and have been improving (3) Hypokalemia: pt given 60meq KCL x 1 along with IV supplemenation repeat K at 12:00pm replete as needed (4) Alcohol abuse: pt reports 2-3 ETOH drinks 3-4x/week with heavy ETOH use in college AWSS protocol prn lorazepam psych consulted ETOH negative on admission Has symptoms of alcohol withdrawal Will put her on gabapentin withdrawal protocol No significant withdrawal symptoms We will decrease the dose of Ativan to 1 mg Withdrawal symptoms (5) Auditory hallucination: ? if 2/2 to ETOH abuse/withdrawl vs underlying psych process psych consulted-appreciate input and recommendation Auditory hallucination is improving We will get serum ceruloplasmin level No more auditory hallucinations Like to be discharged this afternoon following PT and OT evaluation No evidence of any infection as of the Urine and bladder cultures have been negative so far Antibiotics have been discontinued (6) DVT prophylaxis: IV heparin Disposition: admitted to PCU; discharge to home when medically stable Follow up: PCP Juhi Lundy Waiting for her to come and discuss further management from here Total Time Total Time Spent Total Time Spent (In Minutes): 35 minutes Total Time Includes: Examination of the Patient, Discharge Planning, Medication Reconciliation and Communication With Other Providers Discharge Plan Discharge Items Patient Disposition: Home - Self-Care Reason For Visit: N/V ILLNESS, TACHYCARDIA Discharge Diagnosis: Atrial fibrillation with RVR-reverted to sinus rhythm, alcohol abuse with withdrawal symptoms, auditory hallucinations-resolved, abnormal liver function test-improving Condition on Discharge: Good Activity: Resume your previous activity Activity Comment: Do not drive until you are being seen by your primary care physician within 1 week Non-emergency contact: Primary Care Provider Call non-emergency contact if: you have any medication questions and your symptoms worsen Follow-up/Referrals: Kevin Nina DO [Primary Care Provider] - (Please make an appointment with your primary care physician within 1 week) Diet: Heart Healthy Addtl Attending Provider Instructions: Take it easy for the next few days. Do not drive until being seen by your PCP within 1 week Have regular follow-up with alcohol Anonymous group Do not drink anymore alcohol Pending Studies at Discharge: Yes Studies:: CMP , Dayday-Pfeiffer virus serology and hepatitis B core IgM antibody Stand-Alone Forms: My [facility], Work/School Release (Inpt) Medications and DC Order Prescriptions: New thiamine HCl (vitamin B1) [Vitamin B-1] 100 mg Tablet 100 mg PO QAM 30 Days Qty: 30 RF: 0 folic acid 1 mg Tablet 1 mg PO QAM 30 Days Qty: 30 RF: 0 risperidone 0.5 mg Tablet,Disintegrating 0.5 mg PO TID PRN (Reason: agitation) 3 Days Qty: 10 RF: 0 metoprolol tartrate 25 mg Tablet 12.5 mg PO BID 30 Days Qty: 30 RF: 0 Certavite-Antioxidant 18-400 mg-mcg Tablet 1 tab PO QAM 30 Days Qty: 30 RF: 0 Discharge Orders: Discharge Order (Routine); Ordered 07/06/19 Ordered By: Adán Guzman Admission Data Admit Date/Time: 07/02/19 23:49 Attending Provider: Adán Guzman Admit Provider: Zay Christine Primary Care Provider: Kevin Nina Other Providers: Zay Christine ; Lola English ; Calvin Dalton ; Macy Carroll ; Maroi Valenzuela ; Shiva Inman ; Makenna Perkins ; Bing Sidhu ; Jose De Jesus Benson ; Leonard Rodriguez ; Lucrecia Torrez ; Malaika Turner ; Kendra Thomson ; Amanda Tijerina ; Shani Poole ; Peter Wilson ; Víctor Goodwin ; Dom Krishna ; Amador Freire ; Tyron Molina ; Willam Gillespie ; Zahraa Herron ; Clara Awad ; Marisabel Puentes Other Interventions: Discharge Summary Assessment (RN) Last Done: 07/06/19 17:46 DC Date/Time DO NOT enter until pt leaves facility: 07/06/19 18:07
== END 2019-07-06 18:07 | disposition home or self-care (01) | DRG 897 ==
LOC: ED 20:10 → 2S 23:49